=== PATIENT | male | born 1960 | race Hispanic/Latino ===

== ENCOUNTER 2020-04-18 06:28 | Inpatient (IN) | payer SELFPAY ==
[2020-04-18] VITALS (8 sets, daily range): BP systolic 109–148; BP diastolic 49–86
[~2020-04-18] VITALS: Ht 167.6 cm; Wt 69.7 kg
[2020-04-18] MEDS ORDERED: ASPIRIN 81 MG CHEW TAB PO ONE (07:00)
[2020-04-18 07:10] LABS: BASOPHILS % 0.3 % (0.0-1.0); LYMPHOCYTES % 13.4 % (18.0-39.1); MEAN CORPUSCULAR HGB CONC 33.6 g/dL (31-35); MEAN CORPUSCULAR VOLUME 83.5 fL (81-99); MONOCYTES % 6.8 % (4.4-11.3); NEUTROPHILS # (AUTO) 11.5 (2.1-6.9); NEUTROPHILS % 78.7 % (38.7-80.0); PLATELET COUNT 253 x10e3/uL (140-360); RED BLOOD COUNT 1.64 x10e6/uL (4.3-5.7); RED CELL DISTRIBUTION WIDTH 12.9 % (11.7-14.4)
[2020-04-18 07:15] LABS: HEMOGLOBIN 4.6 g/dL (14.0-18.0)
[2020-04-18 07:16] LABS: HEMATOCRIT 13.7 % (38.2-49.6)
[2020-04-18] MEDS ORDERED: SODIUM CHLORIDE 0.9% 250ML 250 ML IV ONE ×2 (07:30→11:45)
[2020-04-18 07:33] LABS: ALBUMIN 3.3 g/dL (3.5-5.0); ALBUMIN/GLOBULIN RATIO 1.2 (0.8-2.0); ANION GAP 12.6 mmol/L (8-16); CALCIUM 8.8 mg/dL (8.4-10.2); CREATININE, SERUM 1.31 mg/dL (0.72-1.25); POTASSIUM 4.6 mmol/L (3.5-5.1)
[2020-04-18 07:56] LABS: CREATINE KINASE MB 5.3 ng/mL (0-5.0)
--- NOTE | 2020-04-18 08:33 | Diagnostic Imaging Report ---
EXAMINATION: CHEST SINGLE (PORTABLE) INDICATION: Altered mental status COMPARISON: None FINDINGS: LINES/TUBES:None LUNGS:The lungs are moderately inflated. No focal consolidation or pulmonary edema. PLEURA:No pleural effusion or pneumothorax. MEDIASTINUM:The cardiomediastinal silhouette appears normal in size and shape. BONES/SOFT TISSUES:No acute osseous injury. ABDOMEN:No free air under the diaphragm. IMPRESSION: No focal pneumonia or pulmonary edema. Signed by: Claudio London MD on 04/18/2020 8:30 AM
--- NOTE | 2020-04-18 08:39 | Diagnostic Imaging Report ---
CT BRAIN WO HISTORY: Altered mental status COMPARISON: None. Technique: Noncontrast axial scans were obtained from skull base to the vertex. Coronal and sagittal reconstructions obtained from the axial data. One or more of the following dose reduction techniques were used: Automated exposure control, adjustment of the mA and/or kV according to patient size, and/or utilization of iterative reconstruction technique. DISCUSSION: Scalp/Skull: Unremarkable. Brain sulci: Mildly prominent. Ventricles: Mild compensatory dilatation. Approximately 5 mm nodular hyperdense lesion in the roof of the third ventricle is compatible with a colloid cyst. Extra-axial spaces: No masses or fluid collections. Carotid siphon calcifications are present. Parenchyma: Mild bilateral deep white matter hypodensity is likely chronic microvascular ischemic change. Otherwise, no masses, hemorrhage, or large vascular territory acute infarct. Dural sinuses: No abnormal densities. Sellar/Suprasellar region: Intact. Skull base: Intact. Incidental findings: None. IMPRESSION: 1. No acute intracranial abnormalities. 2. 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 3. Mild supratentorial chronic microvascular ischemic change. Mild generalized cerebral volume loss. Signed by: Dr. Melvin Garcia M.D. on 04/18/2020 8:35 AM
[2020-04-18] MEDS ORDERED: SODIUM CHLORIDE 0.9% 1000ML 1,000 ML IV STA (09:08)
[2020-04-18] MEDS ORDERED: PANTOPRAZOLE 40 MG 10ML VIAL IV STA (09:08)
[2020-04-18] MEDS ORDERED: OCTREOTIDE ACETATE 0.05 MG/ML AMP IV STA (09:12)
[2020-04-18 09:29] LABS: INR 1.05; PARTIAL THROMBOPLASTIN TIME 25.2 seconds (23.8-35.5); PROTHROMBIN TIME 14.4 seconds (11.9-14.5)
[2020-04-18] MEDS ORDERED: INSULIN REGULAR, HUMAN 100 UNIT/1 ML 3ML VIAL IV ONE (09:30)
--- NOTE | 2020-04-18 09:34 | Emergency Department Note ---
History of Present Illnes History of Present Illness Chief Complaint: General Medicine Complaints History of Present Illness This is a 59 year old male 59 Y/O MALE PT ALERT TO PERSON AND PLACE PRESENTS TO ED PALE IN COLOR WITH WEAKNESS SINCE YESTERDAY. 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 Any updates have been documented here. Past Medical History Recent Fever: No Clinical Suspicion of Infectio: Yes New/Unexplained Change in Ment: Yes Past Medical History: Diabetes Past Surgical History: None Social History Smoking Cessation: Never Smoker Counseling Performed: No Alcohol Use: Occasional Any Illegal Drug Use: No TB Exposure/Symptoms: No Physically hurt or threatened: No Family History Family history of heart diseas: No Other Last Tetanus: UNK Any Pre-Existing Lines (PICC,: No Is patient up to date on immun: Yes Last Flu: unknown Last Pneumovax: unknown Review of Systems Review of Systems Constitutional: Reports as per HPI, Reports weakness EENTM: Reports no symptoms Cardiovascular: Reports no symptoms Respiratory: Reports no symptoms Gastrointestinal: Reports other (BLACK STOOLS) Genitourinary: Reports no symptoms Musculoskeletal: Reports no symptoms Integumentary: Reports no symptoms Neurological: Reports weakness Psychological: Reports no symptoms Endocrine: Reports no symptoms Hematological/Lymphatic: Reports no symptoms Physical Exam Related Data Allergies: Coded Allergies: No Known Allergies (Unverified , 04/18/20) Triage Vital Signs Vital Signs Date Time Temp Pulse Resp B/P (MAP) Pulse Ox O2 Delivery O2 Flow Rate FiO2 04/18/20 07:06 99.8 102 14 151/64 100 Vital signs reviewed: Yes Physical Exam CONSTITUTIONAL Constitutional: Present well-developed, Present well-nourished HENT HENT: Present normocephalic, Present atraumatic, Present oropharynx clear/moist, Present nose normal HENT L/R: Present left ext ear normal, Present right ext ear normal EYES Eyes: Reports PERRL, Reports conjunctivae normal NECK Neck: Present ROM normal PULMONARY Pulmonary: Present effort normal, Present breath sounds normal CARDIOVASCULAR Cardiovascular: Present regular rhythm, Present heart sounds normal, Present capillary refill normal, Present normal rate GASTROINTESTINAL Abdominal: Present soft, Present nontender, Present bowel sounds normal; Absent tender GENITOURINARY Genitourinary: Present guaiac result (POSITIVE, MELENA) SKIN Skin: Present warm, Present dry, Present pale MUSCULOSKELETAL Musculoskeletal: Present ROM normal NEUROLOGICAL Neurological: Present alert, Present DTRs normal, Present no gross motor or sensory deficits, Present other (ORIENTED TO NAME/PLACE, NOT YEAR); Absent cranial nerve deficit, Absent sensory deficit, Absent weakness PSYCHOLOGICAL Psychological: Present mood/affect normal, Present judgement normal Results Laboratory Result Diagram: 04/18/2040 04/18/20 0640 Laboratory Laboratory Tests Test 04/18/20 07:25 04/18/20 06:40 Stool Occult Blood Positive (NEGATIVE) White Blood Count 14.61 x10e3/uL (4.8-10.8) Red Blood Count 1.64 x10e6/uL (4.3-5.7) Hemoglobin 4.6 g/dL (14.0-18.0) Hematocrit 13.7 % (38.2-49.6) Mean Corpuscular Volume 83.5 fL (81-99) Mean Corpuscular Hemoglobin 28.0 pg (28-32) Mean Corpuscular Hemoglobin Concent 33.6 g/dL (31-35) Red Cell Distribution Width 12.9 % (11.7-14.4) Platelet Count 253 x10e3/uL (140-360) Neutrophils (%) (Auto) 78.7 % (38.7-80.0) Lymphocytes (%) (Auto) 13.4 % (18.0-39.1) Monocytes (%) (Auto) 6.8 % (4.4-11.3) Eosinophils (%) (Auto) 0.0 % (0.0-6.0) Basophils (%) (Auto) 0.3 % (0.0-1.0) Neutrophils # (Auto) 11.5 (2.1-6.9) Lymphocytes # (Auto) 2.0 (1.0-3.2) Monocytes # (Auto) 1.0 (0.2-0.8) Eosinophils # (Auto) 0.0 (0.0-0.4) Basophils # (Auto) 0.0 (0.0-0.1) Absolute Immature Granulocyte (auto 0.11 x10e3/uL (0-0.1) Sodium Level 134 mmol/L (136-145) Potassium Level 4.6 mmol/L (3.5-5.1) Chloride Level 97 mmol/L (98-107) Carbon Dioxide Level 29 mmol/L (22-29) Anion Gap 12.6 mmol/L (8-16) Blood Urea Nitrogen 91 mg/dL (7-26) Creatinine 1.31 mg/dL (0.72-1.25) Estimat Glomerular Filtration Rate 56 ML/MIN (60-) BUN/Creatinine Ratio 69 (6-25) Glucose Level 320 mg/dL (74-118) Lactic Acid Level 1.3 mmol/L (0.5-2.0) Calcium Level 8.8 mg/dL (8.4-10.2) Total Bilirubin 0.2 mg/dL (0.2-1.2) Aspartate Amino Transf (AST/SGOT) 16 IU/L (5-34) Alanine Aminotransferase (ALT/SGPT) 17 IU/L (0-55) Alkaline Phosphatase 43 IU/L (40-150) Ammonia 33 UG/DL (31-123) Creatine Kinase 134 IU/L (30-200) Creatine Kinase MB 5.30 ng/mL (0-5.0) Troponin I 0.014 ng/mL (0-0.300) Total Protein 6.0 g/dL (6.5-8.1) Albumin 3.3 g/dL (3.5-5.0) Globulin 2.7 g/dL (2.3-3.5) Albumin/Globulin Ratio 1.2 (0.8-2.0) Lab results reviewed: Yes Imaging Imaging results reviewed: Yes Impressions Procedure: [id number] CT/CT BRAIN WO Exam Date: 04/18/20 Exam Time: 0758 REPORT STATUS: Signed CT BRAIN WO HISTORY: Altered mental status COMPARISON: None. Technique: Noncontrast axial scans were obtained from skull base to the vertex. Coronal and sagittal reconstructions obtained from the axial data. One or more of the following dose reduction techniques were used: Automated exposure control, adjustment of the mA and/or kV according to patient size, and/or utilization of iterative reconstruction technique. DISCUSSION: Scalp/Skull: Unremarkable. Brain sulci: Mildly prominent. Ventricles: Mild compensatory dilatation. Approximately 5 mm nodular hyperdense lesion in the roof of the third ventricle is compatible with a colloid cyst. Extra-axial spaces: No masses or fluid collections. Carotid siphon calcifications are present. Parenchyma: Mild bilateral deep white matter hypodensity is likely chronic microvascular ischemic change. Otherwise, no masses, hemorrhage, or large vascular territory acute infarct. Dural sinuses: No abnormal densities. Sellar/Suprasellar region: Intact. Skull base: Intact. Incidental findings: None. IMPRESSION: 1. No acute intracranial abnormalities. 2. 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 3. Mild supratentorial chronic microvascular ischemic change. Mild generalized cerebral volume loss. Signed by: Dr. Melvin Garcia M.D. on 04/18/2020 8:35 AM Procedure: [id number] DX/CHEST SINGLE (PORTABLE) Exam Date: 04/18/20 Exam Time: 0758 REPORT STATUS: Signed EXAMINATION: CHEST SINGLE (PORTABLE) INDICATION: Altered mental status COMPARISON: None FINDINGS: LINES/TUBES:None LUNGS:The lungs are moderately inflated. No focal consolidation or pulmonary edema. PLEURA:No pleural effusion or pneumothorax. MEDIASTINUM:The cardiomediastinal silhouette appears normal in size and shape. BONES/SOFT TISSUES:No acute osseous injury. ABDOMEN:No free air under the diaphragm. IMPRESSION: No focal pneumonia or pulmonary edema. Signed by: Claudio London MD on 04/18/2020 8:30 AM Critical Care Time Total Critical Care Time (min): 30 Critcal care necessary due to: circulatory failure Critcal care time spent by me: discussion w consultants, discussion w primary provider, evaluation patient response to tx, examination of patient, order/perform tx or interventions, order/review laboratory studies, re- evaluation of patient condition Assessment & Plan Medical Decision Making MDM AMS, WEAKNESS, APPEARS PALE - CHECK CBC, CHEM, ECG, CARDIACS, CXR, COVID SWAB, UA/CX, BLD CX'S, LACTIC, CT HEAD, STOOL GAUIAC - R/O ANEMIA, GI BLEED, STEMI/NSTEMI, PNEUMONIA, UTI, SEPSIS, CEREBRAL BLEED/CVA, COVID19 Reassessment Reassessment SEVERE ANEMIA/UPPER GI BLEED WITH NORMAL LFT'S - IVF'S, PROTONIX, OCTREOTIDE, TRANSFUSE, ADMIT - SPOKE WITH LEN KEEN Assessment & Plan Final Impression: (1) GI bleed (2) Altered mental status (3) Weakness generalized Depart Disposition: ADMITTED Last Vital Signs Date Time Temp Pulse Resp B/P (MAP) Pulse Ox O2 Delivery O2 Flow Rate FiO2 04/18/20 07:06 99.8 102 14 151/64 100 Medications in the ED Aspirin 81 mg PRN ONCE PO ; Start 04/18/20 at 07:00; Stop 04/18/20 at 08:56; Status DC Sodium Chloride 250 ml @ 0 mls/hr ONCE ONCE IV ; Start 04/18/20 at 07:30; Stop 04/18/20 at 08:56; Status DC Pantoprazole Sodium 80 mg NOW STAT IV ; Start 04/18/20 at 09:08; Stop 04/18/20 at 09:09; Status UNV Pantoprazole Sodium 40 mg BID IV ; Start 04/18/20 at 17:00; Stop 05/18/20 at 16:59; Status UNV Sodium Chloride 1,000 ml @ 0 mls/hr Q0M STAT IV ; Start 04/18/20 at 09:08; Stop 04/18/20 at 09:09; Status UNV FIONA WILKINS MD Apr 18, 2020 09:34
[2020-04-18] MEDS ORDERED: DEXTROSE 50% SYRINGE 50 ML IV PRN (09:45)
[2020-04-18] MEDS ORDERED: SODIUM CHLORIDE 0.9% 1000ML 1,000 ML IV SCH (09:45)
--- NOTE | 2020-04-18 10:40 | NUR ---
RECEIVED PATIENT FROM ER PATIENT ARRIVED IN STRETCHER CONFUSED ALERT TO SELF ONLY. HAS TWO IV TO BILATERAL RIGHT AND LEFT AC, PLACED ON IV FLUIDS. REQUIRED 3 PERSON ASSIST TO TRANSFER, HE APPEARED PALE, WAITING ON BLOOD. ORIENTED TO ROOM AND USE OF CALL LIGHT PATIENT CONFUSED UNABLE TO VERBALIZE UNDERSTANDING TO USE CALL LIGHT.
--- NOTE | 2020-04-18 11:30 | NUR ---
Patient pulled IV access got up the bed confused, notified Emiliano De Leon and obtained an order for restraints to bilateral wrist.
--- NOTE | 2020-04-18 11:40 | NUR ---
Patient placed on bilateral wrist restraints, and able to obtain IV access and restart IV fluids on patient.
[2020-04-18] MEDS ORDERED: ONDANSETRON HCL INJ 2MG/ML 2ML 2 MG/ML VIAL IV PRN (12:15)
[2020-04-18] MEDS ORDERED: ACETAMINOPHEN 650 MG SUPP PR PRN (12:15)
--- NOTE | 2020-04-18 12:30 | NUR ---
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
[2020-04-18 12:38] LABS: BASOPHILS % 0.3 % (0.0-1.0); LYMPHOCYTES % 12.9 % (18.0-39.1); MEAN CORPUSCULAR HEMOGLOBIN 28.1 pg (28-32); MEAN CORPUSCULAR HGB CONC 33.1 g/dL (31-35); MONOCYTES # (AUTO) 1.1 (0.2-0.8); NEUTROPHILS # (AUTO) 12.1 (2.1-6.9); NEUTROPHILS % 78.8 % (38.7-80.0); PLATELET COUNT 214 x10e3/uL (140-360); RED BLOOD COUNT 1.53 x10e6/uL (4.3-5.7); RED CELL DISTRIBUTION WIDTH 13.2 % (11.7-14.4)
[2020-04-18 12:58] LABS: CREATINE KINASE MB 5.5 ng/mL (0-5.0); HEMOGLOBIN 4.3 g/dL (14.0-18.0)
[2020-04-18] MEDS ORDERED: CEFEPIME 1GM/NS 0.9% 50 ML 50 ML IV SCH (13:15)
[2020-04-18] MEDS: INSULIN LISPRO 100 UNIT/1 ML 3ML VIAL SQ SCH ×3 (13:40→21:00)
--- NOTE | 2020-04-18 13:40 | NUR ---
Patient is awake and alert to self intermittent confusion, pulses present to bilateral wrist , he is NPO, blood infusing, agitated, skin to bilateral wrist intact. Restraints continue to be use for safety of patient, and line preservation.
--- NOTE | 2020-04-18 13:55 | NUR ---
Obtained another IV access to lateral right AC for antibiotic use and octreotide.
[2020-04-18] MEDS: CEFEPIME 1GM/NS 0.9% 50 ML 50 ML IV SCH (13:58)
[2020-04-18] MEDS: VANCOMYCIN 500MG/NS 0.9% 100ML 100 ML IV SCH (14:32)
--- NOTE | 2020-04-18 14:40 | NUR ---
Patient is awake and alert to self intermittent confusion, pulses present to bilateral wrist , he is NPO, blood infusing, agitated, skin to bilateral wrist intact. Restraints continue to be use for safety of patient, and line preservation. Cefepime antibiotic completed.
--- NOTE | 2020-04-18 15:15 | NUR ---
Patient is awake and alert to self intermittent confusion, pulses present to bilateral wrist , he is NPO, blood infusing, patient calm, skin to bilateral wrist intact. Restraints continue to be use for safety of patient, and line preservation. VANCOMYCIN 500 antibiotic infusing.
--- NOTE | 2020-04-18 15:55 | NUR ---
Patient is awake and alert and confused sanding at the side of the bed, removed both restraints, and pulled both IV access, blood almost completed, called for help, manger came in to assist and patient was assisted back to bed. Restraints were applied back. pulses present to bilateral wrist , he is NPO, blood infusing, patient calm, skin to bilateral wrist intact. Restraints continue to be use for safety of patient, and line preservation.
--- NOTE | 2020-04-18 16:00 | NUR ---
Obtained IV access # 20 gauge to right wrist and blood restarted.
[2020-04-18] MEDS: ZINC SULFATE 50 MG CAP PO SCH (17:00)
[2020-04-18] MEDS: ASCORBIC ACID 500 MG TAB PO SCH (17:00)
[2020-04-18] MEDS: OYST-CAL-D 500MG TABLET PO SCH (17:00)
--- NOTE | 2020-04-18 17:52 | NUR ---
LAB REPORTED THAT THE PATIENT HAS A NEGATIVE RESULT FOR SARS-COV-2 (COVID-19).
--- NOTE | 2020-04-18 18:01 | Diagnostic Imaging Report ---
EXAMINATION: CHEST SINGLE (PORTABLE) INDICATION: PICC line placement. COMPARISON: 04/18/20. FINDINGS: LINES/TUBES:Interval placement of a left upper extremity PICC with distal tip projecting on the cavoatrial junction, adequate position. LUNGS:The lungs are adequately inflated. No focal consolidation or pulmonary edema. PLEURA:No pleural effusion or pneumothorax. MEDIASTINUM:The cardiomediastinal silhouette appears normal in size and shape. Calcification of the aortic arch again observed. BONES/SOFT TISSUES:No acute osseous injury. ABDOMEN:No free air under the diaphragm. IMPRESSION: Left upper extremity PICC with distal tip projecting on the cavoatrial junction, adequate position. Signed by: Dr. Merna Carter M.D. on 04/18/2020 5:58 PM
[2020-04-18] MEDS ORDERED: OCUVITE TABLET1 EAC1 PO (18:24)
[2020-04-18] MEDS ORDERED: ACETAMINOPHEN500 MG PO (18:24)
--- NOTE | 2020-04-18 19:00 | NUR ---
Handoff report to oncoming nurse, patient in bed calm daughter at the bedside, restraints removed patient conversing appropriately. Second unit of PRBC's infusing, to right wrist, PICC line in place, chest x-ray taken, PICC ready to use, informed, nurse, Octreotide drip unable to start due to patient, continuance of pulling IV's access.
[2020-04-18 19:43] LABS: CREATINE KINASE MB 5.2 ng/mL (0-5.0)
--- NOTE | 2020-04-18 19:45 | NUR ---
PATIENT IN BED WITH DAUGHTER AT BEDSIDE WITH NO C/O PAIN OR DISCOMFORT AT THIS TIME. PATIENT HAS BLOOD INFUSING TO IV IN RIGHT ARM AND PICC LINE IN LEFT ARM SO STARTED THE SANDOSTATIN DRIP AND IV NS AT 100ML/HR. WILL CONT TO MONITOR.
[2020-04-18] MEDS ORDERED: [UNRECOGNIZED DRUG - OTHER] PO (19:50)
[2020-04-18] MEDS: PANTOPRAZOLE 40 MG 10ML VIAL IV SCH (19:54)
--- NOTE | 2020-04-18 20:00 | NUR ---
Called Dr. Leos, made aware Octreotide was started by night nurse due to patient's pulling IV access.
[2020-04-18] MEDS ORDERED: MORINGA PO (20:06)
[2020-04-18] MEDS ORDERED: LISINOPRIL10 MG PO (20:08)
[2020-04-18] MEDS ORDERED: LIPITOR20 MG PO (20:10)
[2020-04-18] MEDS ORDERED: PENTOXIFYLLINE400 MG PO (20:12)
--- NOTE | 2020-04-18 20:51 | NUR ---
NURSE ASSESSED PATIENT AND MADE SURE PATIENT WAS SECURE IN RESTRAINTS DAUGHTER STATED SHE WAS ABOUT TO GO TO THE FRONT AND LET HER SISTER COME IN AND REPLACE HER FOR THE NIGHT SITTER. PATIENT WAS STABLE AND STILL RECEIVING BLOOD THROUGH IV.
--- NOTE | 2020-04-18 21:06 | NUR ---
PATIENT'S DAUGHTER CAME TO NURSE STATION STATING SHE WAS LEAVING NOW AND GOING TO THE FRONT TO LET HER SISTER COME IN TO SIT WITH HIM OVERNIGHT. VERIFIED HER CONTACT INFORMATION THEN SHE LEFT. I THEN SAW PATIENT'S OTHER DAUGHTER SKY COME BY AND DIRECTED HER TO THE ROOM.
--- NOTE | 2020-04-18 21:08 | NUR ---
PATIENT'S DAUGHTER SKY CAME TO THE NURSE DESK STATING "HE PULLED OUT THE THING IN HIS ARM AND BLEEDING ALL OVER". NURSE ENTERED ROOM AND PATIENT WAS SITTING UP WITH BLOOD COMING DOWN THE ARM WHERE HE HAD PULLED OUT IV WITH BLOOD INFUSING AND HIS PICC LINE WITH SANDOSTATIN DRIP, REMOVED THE RESTRAINTS FROM HIS WRISTS, NASAL CANNULA AND WAS SAYING HE WANTS TO GO HOME. PATIENT WAS CLEANED UP AND NURSE WAS ABLE TO GET ONE IV GOING AGAIN FOR THE BLOOD TO CONTINUE AND A STAT ORDER WAS PLACED FOR ANOTHER PICC LINE TO BE PUT IN PATIENT AGAIN. PATIENT WAS RESTRAINED AGAIN AND NURSE NOTIFIED NAIF FRAGOSO NP FOR DR GUIDRY AND ORDER WAS PUT IN FOR IV ATIVAN DUE TO PATIENT'S AGITATION. DAUGHTER EDUCATED THAT NO ONE BUT STAFF CAN REMOVE THE RESTRAINTS AND TO LET HER SISTER KNOW NOT TO REMOVE PATIENT RESTRAINTS AGAIN AND THAT IF THEY WERE GOING TO STAY SITTERS THEY CANNOT LEAVE THE ROOM WITHOUT NOTIFYING NURSING STAFF TO KEEP THEIR DAD SAFE. AFTER ADMINISTERING IV ATIVAN PATIENT WAS CALM AND WENT TO SLEEP WITH SNORING. WILL CONT TO MONITOR.
--- NOTE | 2020-04-18 21:35 | Consultation ---
DATE OF CONSULTATION: HISTORY OF PRESENT ILLNESS: This is a 59-year-old male. Apparently, he was doing well yesterday, came back from work. He is confused. There was no fever and no chills. He came to the emergency room, where he is being admitted. The patient does not provide any further information, but he was found to be extremely anemic with hemoglobin of 4.3, is getting blood. The lactic acid was done and shows that it elevated, so Infectious Disease was asked to see the patient. His COVID-19 is negative. His occult blood was positive. Sodium 134, potassium 4.6, and creatinine 1.31. His liver enzyme within normal limit. His white count was 14.6, hemoglobin of 4.6, and platelet count of 53. MEDICATIONS: He is on vancomycin and cefepime he is receiving blood at the present time. LABORATORY AND DIAGNOSTIC DATA: He had a chest x-ray, which shows no focal pneumonia and CT of the brain, which shows no acute finding. REVIEW OF SYSTEMS: CONSTITUTIONAL: He is a little bit confused, but seems to be comfortable. PHYSICAL EXAMINATION: GENERAL: He is currently alert. VITAL SIGNS: Stable, afebrile. HEENT: He is not icteric. NECK: Supple. CHEST: Clear. HEART: S1, S2, no murmurs. ABDOMEN: Soft. Bowel sounds was present. EXTREMITIES: No edema. SKIN: No rash. IMPRESSION: Altered mental status and severe anemia, admission concerned about GI loss. RECOMMEND: GI evaluation. Blood transfusion is ordered. There is no fever at present time. Lactic acid and leukocytosis could be reactive with acute loss. Recommend to put him on Rocephin 1 g daily, to await the blood cultures. We will also obtain CT of the abdomen and pelvis to assess the liver status. We will follow with you clinically. MD ORTIZ Iverson/SKY /[id number]
[2020-04-18] MEDS: OCTREOTIDE ACETATE 500 MCG in SODIUM CHLORIDE 0.9% 250ML 249 ML IV SCH ×2 (22:12→22:17)
[2020-04-18] MEDS ORDERED: QUETIAPINE FUMARATE 25 MG TAB PO SCH (22:15)
[2020-04-18] MEDS ORDERED: LORAZEPAM INJ 2 MG/ML VIAL IV ONE (22:15)
--- NOTE | 2020-04-18 22:17 | NUR ---
PATIENT TELE ALARM GOING OFF NURSE WENT TO ROOM TO ASSESS PATIENT AND PATIENT NOTED TO BE HAVING EXTREME SLEEP APNEA PERIODS WITH DESATING INTO THE 70S DESPITE 4L/NC O2 AND PATIENT HAS LONG PERIODS OF APNEA WELL CHOKING EPISODES. DAUGHTER SKY STILL AT BEDSIDE TO WITNESS PATIENT'S APNEA EPISODES. NURSE ED DAUGHTER THAT ONCE OUT OF THE HOSPITAL HE WILL NEED SLEEP STUDY AND POSSIBLE HOME BIPAP USE. CALLED NAIF FRAGOSO NP FOR DR GUIDRY AND NOTIFIED OF PATIENT'S EXTREME APNEA EPISODES. HE STATES HE WILL COME SEE THE PATIENT.
--- NOTE | 2020-04-18 22:41 | Consultation ---
DATE OF CONSULTATION: 04/18/2020 REASON FOR CONSULTATION: To see if the patient has loss of blood since he has a hemoglobin of 4.3, it is coming from his foot. History could not be taken due to the fact that the patient is not responsive to verbal stimuli. PHYSICAL EXAMINATION: His foot was inspected. He has a grade 1/2 ulceration plantar aspect right foot with no active bleeding. There is some mild periwound cellulitis present with pedal pulses diminished. ASSESSMENT: Grade 2 ulceration with cellulitis. PLAN: We will start Bactroban ointment b.i.d., offloading. Upon discharge, the patient is to follow up in the office. The bleeding, loss of blood is not coming from his foot. TAVARES Hillman/SKY /[id number]
--- NOTE | 2020-04-18 23:27 | NUR ---
NURSE AND SUPERVISOR BILLPOSTING NAIF FRAGOSO IN PATIENT'S ROOM OBSERVING HIS APNEA EPISODES, DAUGHTER AT BEDSIDE STATING SHE HEARS HIM AT HOME FOR YEARS SNORING AND SLEEPING LIKE THIS BUT SHE'S NEVER SEEN HIM IN PERSON DO THIS SINCE HE MOVED TO HER OTHER SISTER'S HOUSE. BIPAP ORDERED FOR PATIENT. NAIF FRAGOSO, SUPERVISOR BILLPOSTING, DR KEEN AND NURSE DISCUSSED PT CARE AT DESK AND CONCLUDED THAT PT NEEDS PULMONARY CONSULT DUE TO THE SEVERE APNEA SINCE DR KEEN NEEDS TO DO EGD/COLONOSCOPY BUT IS CONCERNED ABOUT ANESTHESIA WITH APNEA THIS SEVERE. CONSULT PLACED FOR DR MEDELLIN TO ASSESS PATIENT AND CLEAR PATIENT FOR PROCEDURE. PATIENT NOW ON BIPAP / 16R 30% O2 AND RESTING COMFORTABLY WITH O2 SAT 100%, DAUGHTER STILL AT BEDSIDE SITTER AND PT STILL RESTRAINED AT THIS TIME. WILL CONT TO MONITOR.
[2020-04-19] VITALS (11 sets, daily range): BP systolic 118–189; BP diastolic 54–82
--- NOTE | 2020-04-19 | NUR ---
PER DR KEEN RECHECK CBC AT 0100 AND IF PT HGB IS 7 OR BELOW THEN TRANSFUSE ONE UNIT PRBC. WILL RECHECK AND MONITOR.
--- NOTE | 2020-04-19 00:07 | NUR ---
CALLED [facility] TO CHECK ON ETA FOR PT STAT PICC TO BE INSERTED AND WAS TOLD THERE WAS ONE STOP BEFORE MR ROSS AND THEN THEY WOULD BE COMING. AT THIS TIME PT HAS ONE IV STILL ALLOWING NS FLUIDS AND SANDOSTATIN DRIP BUT WILL NEED ANOTHER ACCESS FOR PROBABLE NEXT UNITS OF BLOOD AND NO OTHER HOSPITAL STAFF HAVE BEEN ABLE TO GAIN ANOTHER ACCESS AT THIS TIME. PT STABLE AND RESTING PEACEFULLY WITH V/S IN NORMAL RANGE. WILL CONT TO MONITOR.
--- NOTE | 2020-04-19 02:20 | NUR ---
NURSING STAFF STILL UNABLE TO OBTAIN BLOOD SAMPLE FROM PATIENT TO RECHECK H&H, MULTIPLE ATTEMPTS BY DIFFERENT NURSES UNSUCCESSFUL AND ER STAFF TOO BUSY TO HELP, CALLED [facility] FOR PICC LINE BACK TO GET ETA FOR PICC INSTALL AND AWAITING CALL BACK.
[2020-04-19] MEDS: LORAZEPAM INJ 2 MG/ML VIAL IV PRN ×2 (02:32→12:57)
[2020-04-19 02:57] LABS: BASOPHILS # (AUTO) 0.1 (0.0-0.1); BASOPHILS % 0.6 % (0.0-1.0); EOSINOPHILS % 0.1 % (0.0-6.0); HEMATOCRIT 22.3 % (38.2-49.6); HEMOGLOBIN 7.5 g/dL (14.0-18.0); LYMPHOCYTES % 28.3 % (18.0-39.1); MEAN CORPUSCULAR HEMOGLOBIN 28.5 pg (28-32); MEAN CORPUSCULAR HGB CONC 33.6 g/dL (31-35); MEAN CORPUSCULAR VOLUME 84.8 fL (81-99); MONOCYTES # (AUTO) 1.4 (0.2-0.8); MONOCYTES % 9.7 % (4.4-11.3); NEUTROPHILS # (AUTO) 8.5 (2.1-6.9); PLATELET COUNT 228 x10e3/uL (140-360); RED BLOOD COUNT 2.63 x10e6/uL (4.3-5.7); RED CELL DISTRIBUTION WIDTH 14.9 % (11.7-14.4)
--- NOTE | 2020-04-19 03:02 | NUR ---
NURSE STAFF STILL ATTEMPTING TO GET LABS FOR PT TO RECHECK H&H AMONG OTHERS AND PATIENT IS RESISTING AND PULLING WELL THRASHING AROUND IN BED WITH FEET. NURSE ADMINISTERED DOSE OF ORDERED ATIVAN IV AND PATIENT STILL RESISTING EVEN WITH 3 NURSES AND DAUGHTER HOLDING PATIENT. PICC LINE NURSE ON THE WAY PER [facility] SO CALLED TO NOTIFY CHIEF OF ANESTHESIOLOGY NAIF FRAGOSO AND ORDERED TO GIVE ONE TIME DOSE OF ATIVAN FOR SEDATION SINCE PT ON BIPAP IN ORDER TO GET PICC LINE INSTALLED WITHOUT PT BREAKING STERILE PROCEDURE WHILE IT'S PLACED.
[2020-04-19] MEDS ORDERED: LORAZEPAM INJ 2 MG/ML VIAL IV ONE (03:15)
[2020-04-19 03:17] LABS: ALANINE AMINOTRANSFERASE 18 IU/L (0-55); ALBUMIN 3.3 g/dL (3.5-5.0); ALBUMIN/GLOBULIN RATIO 1.1 (0.8-2.0); ALKALINE PHOSPHATASE 46 IU/L (40-150); ANION GAP 11.5 mmol/L (8-16); BUN/CREATININE RATIO 46 (6-25); CALCIUM 8.6 mg/dL (8.4-10.2); CARBON DIOXIDE 29 mmol/L (22-29); CHLORIDE 108 mmol/L (98-107); CREATININE, SERUM 0.97 mg/dL (0.72-1.25); EST GLOMERULAR FILTRATION RATE > 60 ML/MIN (60-); GLUCOSE 119 mg/dL (74-118); POTASSIUM 4.5 mmol/L (3.5-5.1)
[2020-04-19 03:25] LABS: BLOOD UREA NITROGEN 45 mg/dL (7-26); SODIUM 144 mmol/L (136-145)
[2020-04-19 03:46] LABS: CHOL/HDL RATIO 4.2 (3.9-4.7); MAGNESIUM 2.1 MG/DL (1.3-2.1)
[2020-04-19 04:06] LABS: THYROID STIMULATING HORMONE 0.219 uIU/mL (0.350-4.940)
[2020-04-19 04:08] LABS: FERRITIN 88.71 ng/mL (21.81-274.66)
--- NOTE | 2020-04-19 04:17 | Diagnostic Imaging Report ---
EXAMINATION: CHEST XRAY LINE PLACEMENT INDICATION: ^PICC LINE PLACEMENT COMPARISON: None FINDINGS: AP view TUBES and LINES: A left upper extremity PICC terminates in the lower SVC. LUNGS: Lungs are well inflated. Lungs are clear. There is no evidence of pneumonia or pulmonary edema. PLEURA: No pleural effusion or pneumothorax. HEART AND MEDIASTINUM: The cardiomediastinal silhouette is unremarkable. BONES AND SOFT TISSUES: No acute osseous lesion. Soft tissues are unremarkable. UPPER ABDOMEN: No free air under the diaphragm. IMPRESSION: The left upper extremity PICC terminates in the lower superior vena cava. Signed by: Dragan Marr MD on 04/19/2020 4:14 AM
[2020-04-19] MEDS: VANCOMYCIN 500MG/NS 0.9% 100ML 100 ML IV SCH ×2 (04:27→15:59)
[2020-04-19] MEDS ORDERED: SODIUM CHLORIDE 0.9% 1000ML 1,000 ML ONE (04:46)
[2020-04-19] MEDS: SODIUM CHLORIDE 0.9% 1000ML 1,000 ML IV SCH ×2 (05:33→15:59)
[2020-04-19] MEDS: OCTREOTIDE ACETATE 500 MCG in SODIUM CHLORIDE 0.9% 250ML 249 ML IV SCH ×3 (06:07→19:56)
--- NOTE | 2020-04-19 06:13 | NUR ---
CALLED AND NOTIFIED DR MEDELLIN OF CONSULT TO CLEAR PT FOR EGD/COLONOSCOPY PROCEDURES DUE TO EXTREME SLEEP APNEA EPISODES WITNESSED BY NURSES, AGENT TICKETING GATE FOR DR GUIDRY AND PT DAUGHTER SKY. DR MEDELLIN STATES HE WILL COME SEE PT TODAY.
[2020-04-19 06:26] LABS: CREATINE KINASE MB 5.2 ng/mL (0-5.0)
[2020-04-19] MEDS: INSULIN LISPRO 100 UNIT/1 ML 3ML VIAL SQ SCH ×4 (07:30→21:00)
[2020-04-19] MEDS: ZINC SULFATE 50 MG CAP PO SCH ×2 (07:43→15:59)
[2020-04-19] MEDS: MULTIVITAMINS/MINERALS TAB PO SCH (07:43)
[2020-04-19] MEDS: MAGNESIUM OXIDE 400 MG TAB PO SCH (07:43)
[2020-04-19] MEDS: ASCORBIC ACID 500 MG TAB PO SCH ×2 (07:43→15:59)
[2020-04-19] MEDS: OYST-CAL-D 500MG TABLET PO SCH ×2 (07:43→15:59)
--- NOTE | 2020-04-19 08:08 | NUR ---
PT GIVEN SELF PAY PACKET, IF APPROVED FOR HOSPITAL MEDICAID IT WILL ONLY PAY FOR STAY INHOUSE, IF PROCESSED THEN WILL BE IN BAR NOTES OR JULIANO APPLICATION GIVEN BY [facility]. PT WILL HAVE TO PAY OUT OF POCKET FOR O2 HART ANTOINE.
[2020-04-19] MEDS: PANTOPRAZOLE 40 MG 10ML VIAL IV SCH ×2 (08:46→17:15)
[2020-04-19] MEDS: BACITRACIN ZINC 15 GM OINT TOP SCH (08:46)
[2020-04-19] MEDS ORDERED: QUETIAPINE FUMARATE 25 MG TAB PO SCH (09:00)
--- NOTE | 2020-04-19 12:24 | Progress Note ---
DATE: SUBJECTIVE: The patient is seen and evaluated. Discussed with the daughter in details. Available labs and notes reviewed. Discussed with the nurse. REVIEW OF SYSTEMS: Unable to obtain review of systems from patient secondary to his medical condition. MEDICATIONS: Medication list is reviewed. From ID point of view, the patient is on vancomycin IV and cefepime. LABORATORY STUDIES: White count of 14.18, hemoglobin 7.5, and platelet 228. Serology: Coronavirus PCR 19 not detected on 04/18/2020. Fecal occult blood is positive. MICROBIOLOGY: Blood culture negative 24 hours. RADIOLOGY STUDIES: Status post PICC line placement. CT of the head showed no acute intracranial abnormalities on 04/18. Chest x-ray showed no focal pneumonia or pulmonary edema. PHYSICAL EXAMINATION: VITAL SIGNS: Temperature 98.8, pulse 71, respirations 10, blood pressure 140/56, and maximum temperature on this admission is 99.8. GENERAL: Comfortable in bed, opens eyes, seems lethargic. No obvious acute distress. Daughter is in the room. She states that patient is overall much better. CV: S1-S2. CHEST: Equal expansion. Clear to auscultation. No acute distress. ABDOMEN: Soft. No distention. No tenderness. HEENT: Moist. No pallor. No JVD. EXTREMITIES: No edema of extremities, moves all. ASSESSMENT AND PLAN: 1. Altered mental status. 2. Severe debility. 3. Severe anemia. Continue with antibiotics. Monitor the patient clinically, follow with the labs. GI on the case. GI scope is planned when patient is medically more stable. Please refer to chart for more information. Follow up with vancomycin trough. Dictated by Kurt Nogueira PA-C (Al) Marylou Flores MD /MODL /[id number]
[2020-04-19] MEDS: CEFEPIME 1GM/NS 0.9% 50 ML 50 ML IV SCH (12:57)
[2020-04-19 14:41] LABS: BASOPHILS # (AUTO) 0.1 (0.0-0.1); BASOPHILS % 0.5 % (0.0-1.0); EOSINOPHILS # (AUTO) 0.1 (0.0-0.4); EOSINOPHILS % 0.6 % (0.0-6.0); HEMATOCRIT 21.3 % (38.2-49.6); LYMPHOCYTES # (AUTO) 2.1 (1.0-3.2); LYMPHOCYTES % 20.4 % (18.0-39.1); MEAN CORPUSCULAR HEMOGLOBIN 28.3 pg (28-32); MEAN CORPUSCULAR HGB CONC 32.9 g/dL (31-35); MEAN CORPUSCULAR VOLUME 86.2 fL (81-99); MONOCYTES # (AUTO) 0.9 (0.2-0.8); MONOCYTES % 8.8 % (4.4-11.3); NEUTROPHILS # (AUTO) 7.1 (2.1-6.9); NEUTROPHILS % 68.3 % (38.7-80.0); PLATELET COUNT 213 x10e3/uL (140-360); RED BLOOD COUNT 2.47 x10e6/uL (4.3-5.7); RED CELL DISTRIBUTION WIDTH 15.1 % (11.7-14.4)
--- NOTE | 2020-04-19 19:20 | Consultation ---
DATE OF CONSULTATION: Pulmonary Critical Care Consultation CHIEF COMPLAINT: Desaturations at night and confusion. HISTORY OF PRESENT ILLNESS: The patient is a 59-year-old man with minimal past medical history. He has some type of diabetes, but does not use inhalers at home. He is not on oxygen at home. He came to the hospital two days ago with increased confusion. He had some vomiting and some black stools. He was admitted to the hospital with a hemoglobin of 4.6. He required packed red blood cells. He is potentially going for an EGD tomorrow. PAST SURGICAL HISTORY: None. PAST MEDICAL HISTORY: 1. Diabetes. 2. The patient denies any prior asthma or respiratory problems. 3. The patient denies any cardiac problems. SOCIAL HISTORY: The patient was a former smoker. He was a former drinker. He works at [employer]. He is here with his family. FAMILY HISTORY: Unknown. ALLERGIES: NO DRUG ALLERGIES. REVIEW OF SYSTEMS: There is no history of fevers. He is having some confusion. There is no headache. He has some snoring. There is no chest pain. He has no dyspnea on exertion. He does not have cough. There is no abdominal pain. He did have some vomiting. He has some black stools. He is not having any leg edema. PHYSICAL EXAMINATION: VITAL SIGNS: The blood pressure is 140/56 and saturation is now 100% on a nasal cannula 4 L. His pulse is 76. His respiratory rate is normal. HEENT: Shows no facial swelling or erythema. CARDIAC: Reveals regular rate and rhythm with normal S1 and S2. LUNGS: Auscultation of lungs reveals a prolonged expiratory phase. There is no wheezing. ABDOMEN: Soft and nontender. There is no rebound or guarding. EXTREMITIES: Shows no leg edema or calf tenderness. There is no cyanosis or clubbing. SKIN: Shows no rashes. NEUROLOGICAL: Shows no focal abnormalities. The patient does have some confusion, but it seems to be improving. LABORATORY DATA: Hemoglobin is now 7.5. White blood cell count is 14.1 and the platelet count is 228. The BUN to creatinine ratio is 45 to 0.97. The albumin is 3.3. The other electrolytes are within normal limits. RADIOGRAPHIC DATA: Chest x-ray shows no acute abnormalities. The lungs are hyperinflated. IMPRESSION: 1. Anemia secondary to acute blood loss. 2. Upper gastrointestinal bleed. 3. Metabolic encephalopathy. 4. Acute kidney injury. 5. Diabetes. 6. Chronic obstructive pulmonary disease. PLAN: 1. Continue to monitor hemoglobin. Give packed red cells as needed. 2. Continue current antibiotics. 3. Oxygen as needed. 4. Bronchodilators as needed. MD LM Parkinson/MODL /[id number]
[2020-04-19] MEDS: HYDRALAZINE HCL 20 MG/ML VIAL IV PRN (20:35)
[2020-04-20] VITALS (9 sets, daily range): BP systolic 124–168; BP diastolic 58–121
[2020-04-20] MEDS: LORAZEPAM INJ 2 MG/ML VIAL IV PRN ×2 (00:15→19:20)
--- NOTE | 2020-04-20 00:30 | NUR ---
0010 Daughter called from room. Noted patient agitated and attempting to remove gown, tele, pulse ox and pulling against restraints. 0015 Medicated PRN, patient continue to be agitated, attempting to kick and removing top linen and gown. Daughter stating patient stating he want to leave. Reoriented patient to place and time. Patient remains agitated. Continue to redirect and distract with daughter at bedside. Will continue to monitor.
[2020-04-20] MEDS: SODIUM CHLORIDE 0.9% 1000ML 1,000 ML IV SCH ×2 (00:42→14:26)
[2020-04-20 00:51] LABS: BASOPHILS # (AUTO) 0.1 (0.0-0.1); BASOPHILS % 0.4 % (0.0-1.0); EOSINOPHILS # (AUTO) 0.1 (0.0-0.4); EOSINOPHILS % 0.4 % (0.0-6.0); HEMOGLOBIN 7.6 g/dL (14.0-18.0); LYMPHOCYTES # (AUTO) 3.7 (1.0-3.2); LYMPHOCYTES % 25.9 % (18.0-39.1); MEAN CORPUSCULAR HEMOGLOBIN 28.6 pg (28-32); MEAN CORPUSCULAR VOLUME 86.5 fL (81-99); MONOCYTES # (AUTO) 1.2 (0.2-0.8); MONOCYTES % 8.4 % (4.4-11.3); NEUTROPHILS % 63.7 % (38.7-80.0); PLATELET COUNT 247 x10e3/uL (140-360); RED BLOOD COUNT 2.66 x10e6/uL (4.3-5.7); RED CELL DISTRIBUTION WIDTH 15.2 % (11.7-14.4)
[2020-04-20 01:09] LABS: ALANINE AMINOTRANSFERASE 21 IU/L (0-55); ALBUMIN 3.2 g/dL (3.5-5.0); ALBUMIN/GLOBULIN RATIO 1.1 (0.8-2.0); ALKALINE PHOSPHATASE 55 IU/L (40-150); ANION GAP 9.8 mmol/L (8-16); BUN/CREATININE RATIO 25 (6-25); CALCIUM 8.5 mg/dL (8.4-10.2); CARBON DIOXIDE 25 mmol/L (22-29); CHLORIDE 113 mmol/L (98-107); CREATININE, SERUM 0.81 mg/dL (0.72-1.25); EST GLOMERULAR FILTRATION RATE > 60 ML/MIN (60-); GLUCOSE 174 mg/dL (74-118); POTASSIUM 3.8 mmol/L (3.5-5.1); SODIUM 144 mmol/L (136-145)
[2020-04-20 01:11] LABS: BLOOD UREA NITROGEN 20 mg/dL (7-26)
[2020-04-20 01:23] LABS: FERRITIN 87.39 ng/mL (21.81-274.66)
--- NOTE | 2020-04-20 02:15 | NUR ---
Care transferred. Daughter at bedside. Patient alert and confused, restraints in place.
[2020-04-20] MEDS: VANCOMYCIN 500MG/NS 0.9% 100ML 100 ML IV SCH ×2 (03:02→15:00)
[2020-04-20 05:40] LABS: BASOPHILS # (AUTO) 0.1 (0.0-0.1); BASOPHILS % 0.6 % (0.0-1.0); EOSINOPHILS # (AUTO) 0.1 (0.0-0.4); EOSINOPHILS % 0.5 % (0.0-6.0); HEMATOCRIT 22.6 % (38.2-49.6); HEMOGLOBIN 7.3 g/dL (14.0-18.0); LYMPHOCYTES # (AUTO) 2.1 (1.0-3.2); LYMPHOCYTES % 16.9 % (18.0-39.1); MEAN CORPUSCULAR HEMOGLOBIN 28.3 pg (28-32); MEAN CORPUSCULAR HGB CONC 32.3 g/dL (31-35); MEAN CORPUSCULAR VOLUME 87.6 fL (81-99); MONOCYTES # (AUTO) 1.1 (0.2-0.8); MONOCYTES % 8.8 % (4.4-11.3); NEUTROPHILS # (AUTO) 9.1 (2.1-6.9); NEUTROPHILS % 72.1 % (38.7-80.0); PLATELET COUNT 252 x10e3/uL (140-360); RED BLOOD COUNT 2.58 x10e6/uL (4.3-5.7); RED CELL DISTRIBUTION WIDTH 15.1 % (11.7-14.4)
[2020-04-20] MEDS: OCTREOTIDE ACETATE 500 MCG in SODIUM CHLORIDE 0.9% 250ML 249 ML IV SCH (06:41)
--- NOTE | 2020-04-20 07:00 | NUR ---
BEDSIDE REPORT FROM LIQUID FERTILIZER SERVICER RN. PT DENIES NEEDS AT THIS TIME.
[2020-04-20 07:13] LABS: BILIRUBIN,URINE NEGATIVE (NEGATIVE); CLARITY,URINE CLEAR (CLEAR); COLOR,URINE YELLOW (YELLOW); KETONES,URINE 1+ (NEGATIVE); LEUKOCYTE ESTERASE ,URINE NEGATIVE (NEGATIVE); NITRITE,URINE NEGATIVE (NEGATIVE); PROTEIN,URINE DIPSTICK NEGATIVE (NEGATIVE); URINE UROBILINOGEN 0.2 mg/dL (0.2 - 1)
[2020-04-20 07:26] LABS: BACTERIA,URINE RARE /HPF; EPITHELIAL CELLS,URINE RARE /LPF; RBC,URINE 0-5 /HPF (0-5); WBC,URINE (MAN) 0-5 /HPF (0-5)
[2020-04-20] MEDS: INSULIN LISPRO 100 UNIT/1 ML 3ML VIAL SQ SCH ×4 (07:30→20:46)
[2020-04-20] MEDS: MULTIVITAMINS/MINERALS TAB PO SCH (08:40)
[2020-04-20] MEDS: BACITRACIN ZINC 15 GM OINT TOP SCH (08:40)
[2020-04-20] MEDS: PANTOPRAZOLE 40 MG 10ML VIAL IV SCH ×2 (08:40→17:22)
[2020-04-20] MEDS: ASCORBIC ACID 500 MG TAB PO SCH ×2 (08:40→17:00)
[2020-04-20] MEDS: MAGNESIUM OXIDE 400 MG TAB PO SCH (08:40)
[2020-04-20] MEDS: OYST-CAL-D 500MG TABLET PO SCH ×2 (08:40→17:00)
[2020-04-20] MEDS: ZINC SULFATE 50 MG CAP PO SCH ×2 (08:40→17:00)
--- NOTE | 2020-04-20 10:17 | NUR ---
PT OFF THE UNIT TO ENDO.
[2020-04-20 12:12] LABS: BASOPHILS # (AUTO) 0.1 (0.0-0.1); BASOPHILS % 0.5 % (0.0-1.0); EOSINOPHILS % 0.3 % (0.0-6.0); HEMOGLOBIN 7.1 g/dL (14.0-18.0); LYMPHOCYTES # (AUTO) 1.7 (1.0-3.2); LYMPHOCYTES % 13.3 % (18.0-39.1); MEAN CORPUSCULAR HEMOGLOBIN 28.1 pg (28-32); MEAN CORPUSCULAR HGB CONC 32.3 g/dL (31-35); MONOCYTES % 7.9 % (4.4-11.3); NEUTROPHILS # (AUTO) 9.7 (2.1-6.9); PLATELET COUNT 261 x10e3/uL (140-360); RED BLOOD COUNT 2.53 x10e6/uL (4.3-5.7); RED CELL DISTRIBUTION WIDTH 14.9 % (11.7-14.4)
[2020-04-20] MEDS ORDERED: ZINC OXIDE 30 GM TUBE TOP PRN (12:45)
[2020-04-20] MEDS: IRON SUCROSE 100 MG in SODIUM CHLORIDE 0.9% 100 ML 100 ML IV SCH (12:46)
--- NOTE | 2020-04-20 12:53 | Operative Report ---
DATE OF PROCEDURE: 04/20/2020 SURGEON: Elias Leos MD PROCEDURE: EGD with biopsies. INDICATIONS FOR EGD: Anemia, history of melena. MEDICATIONS: The patient was done under MAC, please see anesthesiologist's note. PROCEDURE IN DETAIL: With the patient in left lateral decubitus position, a flexible fiberoptic Olympus gastroscope was introduced into the esophagus under direct visualization without any difficulty. There was some patchy erythema noted in distal esophagus. There was some patchy erythema noted in the distal esophagus. The scope was then advanced with ease into the stomach and approximately three ulcers were noted in the antrum; some with heaped up margins without active bleeding, one ulcer was biopsied. The mucosa revealed some patchy erythema and [id number] edema, and biopsies were obtained and sent to stain for H. pylori. Pylorus was of normal contour and shape, it was intubated with ease and the scope was advanced all the way to the second portion of the duodenum. Mucosa overlying the proximal second portion appeared to be within normal limits. Mucosa overlying the duodenal bulb revealed some diffuse some patchy intense erythema. The scope was then withdrawn back into the stomach and retroflexed, mucosa overlying the fundus and cardia appeared to be within normal limits. The scope was then straightened out, it was subsequently withdrawn. The patient tolerated the procedure well. IMPRESSION: 1. Distal esophagitis, mild. 2. Gastritis, biopsied. Biopsies sent to stain for H. pylori. 3. Gastric ulcers, antrum, largest up to 6 mm in size, some with heaped up margins without active bleeding, biopsied. 4. Bulbar duodenitis. PLAN: 1. Follow up histology. 2. Continue PPI therapy. 3. The patient will need to have a repeat EGD in 2 months to re-evaluate the ulcers and document healing. 4. Also, the patient will also need a colonoscopy, which can be done on an outpatient basis. Elias Leos MD [facility]/MODL /[id number] cc: MD Chema Iverson MD Louis M Hamer, MD
[2020-04-20] MEDS: CEFEPIME 1GM/NS 0.9% 50 ML 50 ML IV SCH (14:01)
[2020-04-20] MEDS ORDERED: SODIUM CHLORIDE 0.9% 1000ML 1,000 ML ONE (14:23)
[2020-04-20] MEDS ORDERED: OCTREOTIDE ACETATE 500 MCG in SODIUM CHLORIDE 0.9% 250ML 249 ML IV SCH (16:30)
--- NOTE | 2020-04-20 16:45 | NUR ---
PT OFF THE FLOOR FOR CT
[2020-04-20] MEDS: HYDRALAZINE HCL 20 MG/ML VIAL IV PRN (17:57)
[2020-04-20] MEDS ORDERED: DEXTROSE 5%/0.9% SOD CHL 1,000 ML IV SCH (18:00)
[2020-04-20 18:19] LABS: BASOPHILS % 0.3 % (0.0-1.0); EOSINOPHILS % 0.2 % (0.0-6.0); HEMATOCRIT 21.6 % (38.2-49.6); HEMOGLOBIN 7.1 g/dL (14.0-18.0); LYMPHOCYTES # (AUTO) 1.3 (1.0-3.2); MEAN CORPUSCULAR HEMOGLOBIN 28.6 pg (28-32); MEAN CORPUSCULAR HGB CONC 32.9 g/dL (31-35); MEAN CORPUSCULAR VOLUME 87.1 fL (81-99); MONOCYTES # (AUTO) 0.9 (0.2-0.8); MONOCYTES % 7.7 % (4.4-11.3); NEUTROPHILS # (AUTO) 9.6 (2.1-6.9); NEUTROPHILS % 80.2 % (38.7-80.0); PLATELET COUNT 251 x10e3/uL (140-360); RED BLOOD COUNT 2.48 x10e6/uL (4.3-5.7)
--- NOTE | 2020-04-20 18:43 | Diagnostic Imaging Report ---
EXAM: CT Chest WITHOUT contrast 04/20/2020 4:50 PM INDICATION: Pneumonia. COMPARISON: None TECHNIQUE: Chest was scanned utilizing a multidetector helical scanner from the lung apex through the level of the adrenal glands without administration of IV contrast. Absence of intravenous contrast decreases sensitivity for detection of lymphadenopathy and vascular pathology. Coronal and sagittal reformations were obtained. Routine protocol was performed. IV CONTRAST: None RADIATION DOSE: Total DLP: 480.29 mGy*cm Estimated effective dose: (DLP x 0.014 x size factor) mSv COMPLICATIONS: None FINDINGS: LINES/ TUBES: Left upper extremity PICC with distal tip within the cavoatrial junction. LUNGS AND AIRWAYS: Bilateral multi focal patchy groundglass densities and nodular consolidation scattered throughout predominantly the dependent portions of the lower lobes and superior segment of the upper lobes. Airways are normal. PLEURA: Bilateral small pleural effusions. No pneumothorax. HEART AND MEDIASTINUM: The thyroid gland is normal. No mediastinal, hilar or axillary lymphadenopathy. The heart is normal in size.. There is no pericardial effusion. There are mild to moderate atherosclerotic calcifications in the aorta and coronary arteries. UPPER ABDOMEN: Limited non-contrast views of the upper abdomen demonstrate mild high attenuation within the gallbladder lumen, likely sludge.. The adrenal glands are normal. BONES: There are degenerative changes in the thoracic spine. Multilevel vertebral hemangiomata. SOFT TISSUES: Unremarkable. IMPRESSION: Findings consistent with bilateral multifocal pneumonia, possibly aspiration in the proper clinical setting. Bilateral small pleural effusions. Signed by: Dr. Merna Carter M.D. on 04/20/2020 6:40 PM
[2020-04-20] MEDS ORDERED: LIDOCAINE HCL 2% LOCAL INJ 5 ML SDV VIAL INJ ONE (20:10)
[2020-04-20] MEDS ORDERED: ETOMIDATE 2 MG/ML 10 ML INJ IV ONE (20:10)
[2020-04-20] MEDS ORDERED: PROPOFOL IV EMULSION 10 MG/ML 20 ML VIAL ONE (20:10)
[2020-04-20] MEDS ORDERED: HALOPERIDOL LACTATE 5 MG/ML VIAL ONE (20:39)
[2020-04-20] MEDS ORDERED: HALOPERIDOL LACTATE 5 MG/ML VIAL IM ONE (21:45)
--- NOTE | 2020-04-20 21:56 | NUR ---
Dr Lance Leos ordered to discontinue Sandostatin drip and start Carafate PO as soon as patient no longer NPO, orders carried out.
[2020-04-21] VITALS (14 sets, daily range): BP systolic 104–172; BP diastolic 51–90
[2020-04-21] MEDS: VANCOMYCIN 500MG/NS 0.9% 100ML 100 ML IV SCH ×2 (03:30→15:01)
[2020-04-21 05:45] LABS: BASOPHILS # (AUTO) 0.1 (0.0-0.1); BASOPHILS % 0.3 % (0.0-1.0); HEMATOCRIT 23.1 % (38.2-49.6); HEMOGLOBIN 7.5 g/dL (14.0-18.0); LYMPHOCYTES # (AUTO) 1.1 (1.0-3.2); MEAN CORPUSCULAR HEMOGLOBIN 28.4 pg (28-32); MEAN CORPUSCULAR HGB CONC 32.5 g/dL (31-35); MEAN CORPUSCULAR VOLUME 87.5 fL (81-99); MONOCYTES # (AUTO) 1.1 (0.2-0.8); NEUTROPHILS # (AUTO) 12.7 (2.1-6.9); NEUTROPHILS % 84.8 % (38.7-80.0); PLATELET COUNT 280 x10e3/uL (140-360); RED BLOOD COUNT 2.64 x10e6/uL (4.3-5.7); RED CELL DISTRIBUTION WIDTH 15.5 % (11.7-14.4)
[2020-04-21] MEDS: METOPROLOL TARTRATE INJ 1 MG/ML VIAL IV PRN ×2 (05:45→08:00)
--- NOTE | 2020-04-21 05:52 | NUR ---
CALLED AND SPOKE WITH DR GUIDRY, PT HEART RATE NOW IS ON 150s to 160s. THE MD ORDERED METOPROLOL IV 10 MG IV Q2 HR IF HR GREATER THAN 100. ORDER READ BACK AND CARRIED OUT.
[2020-04-21 06:10] LABS: ALANINE AMINOTRANSFERASE 19 IU/L (0-55); ALBUMIN 2.8 g/dL (3.5-5.0); ALKALINE PHOSPHATASE 62 IU/L (40-150); ANION GAP 13.3 mmol/L (8-16); BLOOD UREA NITROGEN 12 mg/dL (7-26); BUN/CREATININE RATIO 14 (6-25); CALCIUM 8.2 mg/dL (8.4-10.2); CARBON DIOXIDE 24 mmol/L (22-29); CHLORIDE 114 mmol/L (98-107); CREATININE, SERUM 0.85 mg/dL (0.72-1.25); EST GLOMERULAR FILTRATION RATE > 60 ML/MIN (60-); GLUCOSE 178 mg/dL (74-118); MAGNESIUM 1.7 MG/DL (1.3-2.1); POTASSIUM 3.3 mmol/L (3.5-5.1); SODIUM 148 mmol/L (136-145)
--- NOTE | 2020-04-21 07:15 | NUR ---
received patient agitated and restless. Heart rate elevated 150's A FIB, per telemetry patient converted to A fib around 0400, will call Md for further orders.
[2020-04-21] MEDS: INSULIN LISPRO 100 UNIT/1 ML 3ML VIAL SQ SCH ×4 (07:30→21:00)
[2020-04-21] MEDS: SUCRALFATE 1 GM TAB PO SCH ×4 (07:30→21:00)
--- NOTE | 2020-04-21 07:45 | NUR ---
Informed Emiliano SAWMILL RELIEF WORKER, that patient heart rate remains elevated after 2 doses of Metoprolol 10 mg IVP given and per telemetry patient A FIB RVR, orders received and entered
[2020-04-21] MEDS: LORAZEPAM INJ 2 MG/ML VIAL IV PRN ×3 (07:59→23:00)
[2020-04-21] MEDS: PANTOPRAZOLE 40 MG 10ML VIAL IV SCH ×2 (07:59→17:34)
[2020-04-21] MEDS: MULTIVITAMINS/MINERALS TAB PO SCH (08:05)
[2020-04-21] MEDS: ZINC OXIDE 30 GM TUBE TOP SCH (08:05)
[2020-04-21] MEDS: OYST-CAL-D 500MG TABLET PO SCH ×2 (08:05→16:00)
[2020-04-21] MEDS: MAGNESIUM OXIDE 400 MG TAB PO SCH (08:05)
[2020-04-21] MEDS: BACITRACIN ZINC 15 GM OINT TOP SCH (08:05)
[2020-04-21] MEDS: ASCORBIC ACID 500 MG TAB PO SCH ×2 (08:05→16:00)
[2020-04-21] MEDS: ZINC SULFATE 50 MG CAP PO SCH ×2 (08:05→16:01)
[2020-04-21] MEDS ORDERED: AMIODARONE HCL 150 MG in DEXTROSE 5% 100ML 100 ML IV STA (08:46)
[2020-04-21] MEDS ORDERED: AMIODARONE HCL 900 MG in DEXTROSE 5% 500ML 500 ML IV SCH (09:00)
[2020-04-21] MEDS ORDERED: ZINC OXIDE/COD LIVER OIL 30 GM TUBE TOP SCH (09:00)
[2020-04-21] MEDS: IRON SUCROSE 100 MG in SODIUM CHLORIDE 0.9% 100 ML 100 ML IV SCH (11:41)
[2020-04-21] MEDS: DEXTROSE 5%/0.45% SOD CHL 1,000 ML IV SCH (11:41)
[2020-04-21] MEDS ORDERED: POTASSIUM CHLORIDE 20MEQ/100ML 100 ML IV ONE (11:45)
--- NOTE | 2020-04-21 12:39 | NUR ---
ST NOTE: Spoke with AMANDA Luque this AM, pt not appropriate due to restlessness and AMS. Checked pt status at 12:30, no change, will follow up bf end of day for readiness. If pt not appropriate, he will need NG tube for nutrition/hydration. Pt is restrained at this time.
[2020-04-21] MEDS: CEFEPIME 1GM/NS 0.9% 50 ML 50 ML IV SCH (13:38)
--- NOTE | 2020-04-21 13:58 | Progress Note ---
DATE: SUBJECTIVE: The patient is seen and evaluated. Discussed with the attending team. Discussed with the patient's daughter in the room. The patient remains agitated and confused, not much of interaction with me. He is currently combative in the bed, restrained upper extremities. Unable to obtain review of systems. PHYSICAL EXAMINATION: VITAL SIGNS: Temperature 99.9 at the max today, pulse 137, respirations 19, blood pressure 104/90. GENERAL: Comfortable in bed, confused, combative, restrained upper extremities. CV: S1 and S2. CHEST: Equal expansion. Decreased breath sounds. No acute distress. ABDOMEN: Soft. No distention. HEENT: Moist. No pallor. No JVD. EXTREMITIES: No significant edema. MEDICATIONS: Medication list reviewed. The patient is on vancomycin IV, cefepime, also zinc sulfate and vitamin C. LABORATORY STUDIES: White count of 14.99, hemoglobin 7.5, platelet 280. Sodium 148, potassium 3.3, creatinine 0.85. Vancomycin trough 3.5 on 04/19. Coronavirus PCR not detected on 04/18. MICROBIOLOGY: Blood culture negative 72 hours. RADIOLOGY STUDIES: CT of the chest from yesterday reviewed. Findings consistent with bilateral multifocal pneumonia, possibly aspiration in the proper clinical setting, bilateral small pleural effusions. ASSESSMENT AND PLAN: 1. Altered mental status. 2. Concern pneumonia, aspiration type. 3. Severe anemia. 4. Severe debility. The patient on vancomycin IV and cefepime, leukocytosis with T-max of 99.9 with concerns for aspiration pneumonia. We will add Flagyl. Recheck CBC tomorrow. Monitor the patient clinically. Follow up with the labs. Discussed with the attending team in regard to antibiotic plans and also discussed with the daughter. Discussed with Dr. Flores in detail. Dictated by Kurt Nogueira PA-C (Al) Marylou Flores MD /MODL /[id number]
[2020-04-21] MEDS: METRONIDAZOLE 500MG/NS 100ML 100 ML IV SCH ×2 (14:08→21:19)
--- NOTE | 2020-04-21 18:35 | Consultation ---
DATE OF CONSULTATION: 04/21/2020 REASON FOR CONSULTATION: AFib with RVR. GI bleed, altered mental status. HISTORY OF PRESENT ILLNESS: This is a 59-year-old male with history of diabetes. The patient presents to [facility] ER with altered mental status and weakness and pale in appearance, was noted to be severely anemic with a hemoglobin of 4, and also reported of coffee-grounds emesis. The patient underwent EGD, when he was found to have gastric ulcers, on appropriate medications per GI. However, also was noted to be hypoxic, underwent CT scan of the chest showing bilateral pneumonias. This a.m., the patient was noted to be in AFib with RVR. Cardiology was consulted to evaluate the patient. The patient was started on amiodarone drip. Currently, he is in AFib with a heart rate of 120. The patient is seen in room with daughter at bedside. The patient has been sedated due to his confusion, so no information was obtained from the patient; however, daughter reports the patient has history of diabetes, is not on any medications. He does have a history of heavy alcohol use and tobacco use, however, quit about two years ago. PAST MEDICAL HISTORY: Diabetes. SURGICAL HISTORY: No surgical history. SOCIAL HISTORY: He is . He works at [employer]. He used to drink at least one pack per day of beer, however, quit in 2018. Also, he was a heavy smoker at one pack per day for greater than 20 years, quit, however, in 2018. FAMILY HISTORY: No reports of CAD, stroke, cancer. ALLERGIES: NO KNOWN ALLERGIES. REVIEW OF SYSTEMS: Unable to obtain due to the patient's confusion and he has been sedated. PHYSICAL EXAMINATION: VITAL SIGNS: Height 66 inches, weight 165 pounds. Current vital signs temperature 99.9, pulse 136, respiratory rate 18, blood pressure 104/90, and pulse ox 94% on 2 L nasal cannula. GENERAL: The patient is sedated, unable to get any information. SKIN: No rashes or bruises noted. HEENT: Normocephalic. Pupils are equal and reactive. No JVD. No carotid bruits. Oral mucosa pink. HEART: Irregular rhythm and tachycardic with soft systolic murmur heard in the right upper sternal border. LUNGS: Bilaterally with rhonchi on nasal cannula. ABDOMEN: Soft, nontender, and nondistended. No organomegaly noted. VASCULAR: +2 radial pulses bilaterally, +1 DP and PT pulses bilaterally. NEUROLOGIC: Unable to obtain. The patient is sedated. LABORATORY DATA: White count 14.9, hemoglobin is 7, hematocrit of 23, and platelets of 280. Sodium 148, potassium 3.3, chloride 114, BUN 12, creatinine 0.8, and glucose 178. Troponins 0.02 x3. TSH of 0.21. INR 1.05, PTT 25, and PT 14. Stool DANO positive. COVID negative. IMAGING DATA: CT of chest done on 04/20/2020, showing bilateral multifocal pneumonia consistent with aspiration. EKG showing AFib with RVR with heart rate in 130s. ASSESSMENT: 1. Gastrointestinal bleed, status post esophagogastroduodenoscopy showing gastric ulcers. 2. Aspiration pneumonia. 3. Atrial fibrillation with rapid ventricular response. 4. Metabolic encephalopathy secondary to probable infection. PLAN: 1. The patient presents to [facility] with altered mental status, notable with coffee-grounds emesis. Hemoglobin of 4 on admission, status post multiple blood transfusions and EGD showing gastric ulcer. This a.m., the patient went into AFib with RVR. We tried rhythm suppression with amiodarone. 2. We will continue beta-beatriz therapy for heart rate control. 3. We will obtain echo to evaluate heart function structure. 4. The patient on PPI management as per GI. 5. Further recommendations as course progresses. Thank you very much for this consult. Agree with note Dictated by Bradly Ambrocio, RUKHSANA Bubba Piedra MD DC/SKY /[id number] INGRID
[2020-04-22] VITALS (14 sets, daily range): BP systolic 148–185; BP diastolic 52–90
[2020-04-22] MEDS: VANCOMYCIN 500MG/NS 0.9% 100ML 100 ML IV SCH (03:00)
[2020-04-22] MEDS: LORAZEPAM INJ 2 MG/ML VIAL IV PRN ×2 (05:00→23:32)
[2020-04-22 05:41] LABS: BASOPHILS # (AUTO) 0.1 (0.0-0.1); BASOPHILS % 0.3 % (0.0-1.0); HEMATOCRIT 22.9 % (38.2-49.6); HEMOGLOBIN 7.5 g/dL (14.0-18.0); LYMPHOCYTES # (AUTO) 1.4 (1.0-3.2); LYMPHOCYTES % 7.4 % (18.0-39.1); MEAN CORPUSCULAR HEMOGLOBIN 28.7 pg (28-32); MEAN CORPUSCULAR HGB CONC 32.8 g/dL (31-35); MEAN CORPUSCULAR VOLUME 87.7 fL (81-99); MONOCYTES # (AUTO) 1.4 (0.2-0.8); MONOCYTES % 7.3 % (4.4-11.3); NEUTROPHILS # (AUTO) 15.9 (2.1-6.9); NEUTROPHILS % 84.4 % (38.7-80.0); PLATELET COUNT 312 x10e3/uL (140-360); RED BLOOD COUNT 2.61 x10e6/uL (4.3-5.7)
[2020-04-22] MEDS: METRONIDAZOLE 500MG/NS 100ML 100 ML IV SCH ×3 (06:16→21:54)
[2020-04-22] MEDS: METOPROLOL TARTRATE INJ 1 MG/ML VIAL IV PRN (06:17)
[2020-04-22 06:32] LABS: ALANINE AMINOTRANSFERASE 32 IU/L (0-55); ALBUMIN 2.9 g/dL (3.5-5.0); ALBUMIN/GLOBULIN RATIO 0.9 (0.8-2.0); ALKALINE PHOSPHATASE 65 IU/L (40-150); ANION GAP 13.4 mmol/L (8-16); BLOOD UREA NITROGEN 15 mg/dL (7-26); BUN/CREATININE RATIO 16 (6-25); CALCIUM 8.3 mg/dL (8.4-10.2); CARBON DIOXIDE 24 mmol/L (22-29); CHLORIDE 116 mmol/L (98-107); CREATININE, SERUM 0.92 mg/dL (0.72-1.25); EST GLOMERULAR FILTRATION RATE > 60 ML/MIN (60-); GLUCOSE 209 mg/dL (74-118); MAGNESIUM 1.7 MG/DL (1.3-2.1); POTASSIUM 3.4 mmol/L (3.5-5.1); SODIUM 150 mmol/L (136-145)
[2020-04-22] MEDS: SUCRALFATE 1 GM TAB PO SCH ×4 (07:30→21:25)
[2020-04-22] MEDS: INSULIN LISPRO 100 UNIT/1 ML 3ML VIAL SQ SCH ×4 (08:13→23:33)
[2020-04-22] MEDS: DEXTROSE 5%/0.45% SOD CHL 1,000 ML IV SCH (08:13)
[2020-04-22] MEDS: PANTOPRAZOLE 40 MG 10ML VIAL IV SCH ×2 (08:13→17:39)
[2020-04-22] MEDS: MAGNESIUM OXIDE 400 MG TAB PO SCH (08:13)
[2020-04-22] MEDS: ASCORBIC ACID 500 MG TAB PO SCH ×2 (08:14→17:00)
[2020-04-22] MEDS: MULTIVITAMINS/MINERALS TAB PO SCH (08:14)
[2020-04-22] MEDS: ZINC SULFATE 50 MG CAP PO SCH ×2 (08:14→17:00)
[2020-04-22] MEDS: OYST-CAL-D 500MG TABLET PO SCH ×2 (08:14→17:00)
[2020-04-22] MEDS: ZINC OXIDE 30 GM TUBE TOP SCH (08:27)
[2020-04-22] MEDS: BACITRACIN ZINC 15 GM OINT TOP SCH (09:22)
[2020-04-22] MEDS ORDERED: POTASSIUM CHLORIDE 20MEQ/100ML 200 ML IV ONE (09:30)
[2020-04-22] MEDS ORDERED: DEXTROSE 5%/0.225% SOD CHL 1,000 ML IV SCH (10:00)
[2020-04-22] MEDS: IRON SUCROSE 100 MG in SODIUM CHLORIDE 0.9% 100 ML 100 ML IV SCH (13:25)
[2020-04-22] MEDS: CEFEPIME 1GM/NS 0.9% 50 ML 50 ML IV SCH (13:30)
[2020-04-22] MEDS: VANCOMYCIN 1GM/NS 250 ML 250 ML IV SCH (15:49)
[2020-04-22] MEDS: HYDRALAZINE HCL 20 MG/ML VIAL IV PRN (20:07)
[2020-04-23] VITALS (15 sets, daily range): BP systolic 124–193; BP diastolic 70–87
[2020-04-23] MEDS: METOPROLOL TARTRATE INJ 1 MG/ML VIAL IV PRN (02:31)
[2020-04-23] MEDS ORDERED: HALOPERIDOL LACTATE 5 MG/ML VIAL IM ONE (03:45)
[2020-04-23] MEDS: VANCOMYCIN 1GM/NS 250 ML 250 ML IV SCH ×2 (04:21→16:00)
[2020-04-23 06:10] LABS: BASOPHILS # (AUTO) 0.1 (0.0-0.1); BASOPHILS % 0.4 % (0.0-1.0); EOSINOPHILS % 0.1 % (0.0-6.0); HEMATOCRIT 22.9 % (38.2-49.6); HEMOGLOBIN 7.4 g/dL (14.0-18.0); LYMPHOCYTES # (AUTO) 0.7 (1.0-3.2); LYMPHOCYTES % 4.5 % (18.0-39.1); MEAN CORPUSCULAR HEMOGLOBIN 28.6 pg (28-32); MEAN CORPUSCULAR HGB CONC 32.3 g/dL (31-35); MEAN CORPUSCULAR VOLUME 88.4 fL (81-99); MONOCYTES # (AUTO) 0.9 (0.2-0.8); MONOCYTES % 5.7 % (4.4-11.3); NEUTROPHILS # (AUTO) 14.5 (2.1-6.9); NEUTROPHILS % 88.3 % (38.7-80.0); PLATELET COUNT 302 x10e3/uL (140-360); RED BLOOD COUNT 2.59 x10e6/uL (4.3-5.7); RED CELL DISTRIBUTION WIDTH 16.4 % (11.7-14.4)
[2020-04-23] MEDS: METRONIDAZOLE 500MG/NS 100ML 100 ML IV SCH ×3 (06:17→22:13)
[2020-04-23 06:24] LABS: ALANINE AMINOTRANSFERASE 35 IU/L (0-55); ALBUMIN 2.6 g/dL (3.5-5.0); ALBUMIN/GLOBULIN RATIO 0.8 (0.8-2.0); ALKALINE PHOSPHATASE 55 IU/L (40-150); ANION GAP 13.5 mmol/L (8-16); BLOOD UREA NITROGEN 15 mg/dL (7-26); BUN/CREATININE RATIO 18 (6-25); CALCIUM 8.1 mg/dL (8.4-10.2); CARBON DIOXIDE 22 mmol/L (22-29); CHLORIDE 114 mmol/L (98-107); CREATININE, SERUM 0.84 mg/dL (0.72-1.25); EST GLOMERULAR FILTRATION RATE > 60 ML/MIN (60-); GLUCOSE 174 mg/dL (74-118); POTASSIUM 3.5 mmol/L (3.5-5.1); SODIUM 146 mmol/L (136-145)
[2020-04-23] MEDS: INSULIN LISPRO 100 UNIT/1 ML 3ML VIAL SQ SCH ×5 (06:33→19:00)
[2020-04-23] MEDS: SUCRALFATE 1 GM TAB PO SCH ×5 (07:30→22:00)
[2020-04-23] MEDS: OYST-CAL-D 500MG TABLET PO SCH ×2 (09:00→17:00)
[2020-04-23] MEDS: MULTIVITAMINS/MINERALS TAB PO SCH (09:00)
[2020-04-23] MEDS: MAGNESIUM OXIDE 400 MG TAB PO SCH (09:00)
[2020-04-23] MEDS: ZINC SULFATE 50 MG CAP PO SCH ×2 (09:00→17:00)
[2020-04-23] MEDS: ASCORBIC ACID 500 MG TAB PO SCH ×2 (09:00→17:00)
[2020-04-23] MEDS: BACITRACIN ZINC 15 GM OINT TOP SCH (09:05)
[2020-04-23] MEDS: ZINC OXIDE 30 GM TUBE TOP SCH (09:05)
[2020-04-23] MEDS: PANTOPRAZOLE 40 MG 10ML VIAL IV SCH ×2 (09:05→17:15)
[2020-04-23] MEDS: IRON SUCROSE 100 MG in SODIUM CHLORIDE 0.9% 100 ML 100 ML IV SCH (12:15)
--- NOTE | 2020-04-23 12:40 | NUR ---
Nutrition Screen Note RD Recommendation for Physician: Continue diet as ordered with Glucerna TID with meals. Pt may require nutrition support if mental status does not improve and PO intake remains poor. Plan of Care: RD following monitoring for tolerance and adequacy Nutrition reason for involvement: MD Consult, LOS Primary Diagnose(s): AMS, GIB weakness PMH: T2DM Ht: 66 in Wt:151 lbs BMI:24.4 kg/m2 IBW: [address] Assessment: Initial encounter with patient. Consult received regarding oral nutrition supplement. RD to provide Gucerna TID with meals. Pt with an altered mental status and has been too confused to eat. Pt also has an active GI Bleed and nutrition support via nasoenteric tube is probably not indicated at this time. Daughter was at bedside. Daughter states that pt was eating well LEAD CONSULTANT and had no known food allergies. Pt had no significant wt changes. BUTADIENE CONVERTER OPERATOR note reviewed. Current Diet: 1600 calorie ADA Malnutrition Evaluation (04/23/2020) The patient does not meet criteria for a specified degree of malnutrition at this time. Will re-evaluate at follow-up as appropriate. Diet Education Needs Assessment: Diet education not indicated at this time due to altered mental status. Diet tolerance: Diet tolereated Nutrition Care Level: Moderate Doug Ferguson RD, LD, CNSC
[2020-04-23] MEDS: HYDRALAZINE HCL 20 MG/ML VIAL IV PRN (13:27)
[2020-04-23] MEDS: CEFEPIME 1GM/NS 0.9% 50 ML 50 ML IV SCH (13:45)
[2020-04-23] MEDS: SOD CHL IV SCH (17:57)
[2020-04-23] MEDS: DEXTROSE IV SCH (17:57)
[2020-04-23] MEDS: POTASSIUM CHLORIDE IV SCH (17:57)
--- NOTE | 2020-04-23 19:07 | NUR ---
CHANGE OF SHIFT REPORT GIVEN TO ROXY Rosales RN.
--- NOTE | 2020-04-23 19:20 | NUR ---
Received patient from day nurse, patient is in bilateral restraints for ams. Patient is alert and oriented x 1. bilateral wrist inspected and warm, pulses present, circulation intact, range of motion done, no signs of injury, skin intergrity is good, patient denied bm, no wet linen at this time, patient offered apple juice and accepted, patient is not in distress. patient not ready for dc of restraints upon assessment, patient is not following commands and reaching to pull medical devices, family aware, Piedad was called and ordered to continue restraints. Patient is currrently stable will continue to monitor.
[2020-04-24] VITALS (9 sets, daily range): BP systolic 130–174; BP diastolic 48–86
[2020-04-24] MEDS: LORAZEPAM INJ 2 MG/ML VIAL IV PRN (00:14)
[2020-04-24] MEDS: INSULIN LISPRO 100 UNIT/1 ML 3ML VIAL SQ SCH ×4 (01:00→19:00)
[2020-04-24] MEDS: VANCOMYCIN 1GM/NS 250 ML 250 ML IV SCH ×2 (05:13→16:30)
[2020-04-24] MEDS: METRONIDAZOLE 500MG/NS 100ML 100 ML IV SCH ×3 (06:00→22:15)
--- NOTE | 2020-04-24 07:14 | NUR ---
Patient endorsed to next shift for continuity of care.
[2020-04-24 07:26] LABS: BASOPHILS % 0.3 % (0.0-1.0); EOSINOPHILS # (AUTO) 0.3 (0.0-0.4); EOSINOPHILS % 2.4 % (0.0-6.0); LYMPHOCYTES # (AUTO) 1.2 (1.0-3.2); LYMPHOCYTES % 10.9 % (18.0-39.1); MEAN CORPUSCULAR HEMOGLOBIN 28.3 pg (28-32); MEAN CORPUSCULAR VOLUME 88.4 fL (81-99); MONOCYTES # (AUTO) 0.8 (0.2-0.8); MONOCYTES % 7.5 % (4.4-11.3); NEUTROPHILS # (AUTO) 8.3 (2.1-6.9); NEUTROPHILS % 78.3 % (38.7-80.0); PLATELET COUNT 306 x10e3/uL (140-360); RED BLOOD COUNT 2.33 x10e6/uL (4.3-5.7)
[2020-04-24 07:30] LABS: HEMATOCRIT 20.6 % (38.2-49.6); HEMOGLOBIN 6.6 g/dL (14.0-18.0)
[2020-04-24] MEDS: SUCRALFATE 1 GM TAB PO SCH ×4 (07:30→22:15)
[2020-04-24 07:51] LABS: ALANINE AMINOTRANSFERASE 26 IU/L (0-55); ALBUMIN 2.1 g/dL (3.5-5.0); ALBUMIN/GLOBULIN RATIO 0.7 (0.8-2.0); ALKALINE PHOSPHATASE 46 IU/L (40-150); ANION GAP 9.2 mmol/L (8-16); BLOOD UREA NITROGEN 13 mg/dL (7-26); BUN/CREATININE RATIO 18 (6-25); CALCIUM 7.6 mg/dL (8.4-10.2); CARBON DIOXIDE 26 mmol/L (22-29); CHLORIDE 109 mmol/L (98-107); CREATININE, SERUM 0.72 mg/dL (0.72-1.25); EST GLOMERULAR FILTRATION RATE > 60 ML/MIN (60-); GLUCOSE 160 mg/dL (74-118); MAGNESIUM 1.7 MG/DL (1.3-2.1); POTASSIUM 3.2 mmol/L (3.5-5.1); SODIUM 141 mmol/L (136-145)
[2020-04-24] MEDS: MAGNESIUM OXIDE 400 MG TAB PO SCH (08:31)
[2020-04-24] MEDS: ASCORBIC ACID 500 MG TAB PO SCH ×2 (08:31→16:36)
[2020-04-24] MEDS: OYST-CAL-D 500MG TABLET PO SCH ×2 (08:31→16:36)
[2020-04-24] MEDS: MULTIVITAMINS/MINERALS TAB PO SCH (08:31)
[2020-04-24] MEDS: ZINC SULFATE 50 MG CAP PO SCH ×2 (08:32→16:36)
--- NOTE | 2020-04-24 09:07 | NUR ---
flores and K reported to
[2020-04-24] MEDS: ZINC OXIDE 30 GM TUBE TOP SCH (09:20)
[2020-04-24] MEDS: PANTOPRAZOLE 40 MG 10ML VIAL IV SCH ×2 (09:20→16:36)
[2020-04-24] MEDS: BACITRACIN ZINC 15 GM OINT TOP SCH (09:20)
[2020-04-24] MEDS ORDERED: LORAZEPAM INJ 2 MG/ML VIAL IV PRN (09:30)
[2020-04-24] MEDS ORDERED: SODIUM CHLORIDE 0.9% 250ML 250 ML IV ONE (09:30)
[2020-04-24] MEDS ORDERED: POTASSIUM CHLORIDE 20MEQ/100ML 200 ML IV ONE (09:30)
[2020-04-24] MEDS: GABAPENTIN 100 MG CAP PO SCH ×2 (09:30→16:36)
[2020-04-24] MEDS: DEXTROSE IV SCH (12:26)
[2020-04-24] MEDS: SOD CHL IV SCH (12:26)
[2020-04-24] MEDS: POTASSIUM CHLORIDE IV SCH (12:26)
[2020-04-24] MEDS: IRON SUCROSE 100 MG in SODIUM CHLORIDE 0.9% 100 ML 100 ML IV SCH (13:07)
[2020-04-24] MEDS: CEFEPIME 1GM/NS 0.9% 50 ML 50 ML IV SCH (15:01)
[2020-04-24] MEDS ORDERED: SODIUM CHLORIDE 0.9% 250ML 0 ML ONE (16:02)
--- NOTE | 2020-04-24 19:00 | NUR ---
1900:Patient has no restraints at this time.
[2020-04-25] VITALS: BP 127/59
[2020-04-25] MEDS: INSULIN LISPRO 100 UNIT/1 ML 3ML VIAL SQ SCH ×4 (01:00→20:43)
[2020-04-25 04:54] VITALS: BP 145/74
[2020-04-25] MEDS: VANCOMYCIN 1GM/NS 250 ML 250 ML IV SCH ×2 (05:00→17:06)
[2020-04-25 06:42] LABS: ALANINE AMINOTRANSFERASE 23 IU/L (0-55); ALBUMIN 1.8 g/dL (3.5-5.0); ALBUMIN/GLOBULIN RATIO 0.7 (0.8-2.0); ALKALINE PHOSPHATASE 37 IU/L (40-150); ANION GAP 8.1 mmol/L (8-16); BLOOD UREA NITROGEN 11 mg/dL (7-26); BUN/CREATININE RATIO 18 (6-25); CARBON DIOXIDE 22 mmol/L (22-29); CHLORIDE 114 mmol/L (98-107); CREATININE, SERUM 0.62 mg/dL (0.72-1.25); EST GLOMERULAR FILTRATION RATE > 60 ML/MIN (60-); GLUCOSE 104 mg/dL (74-118); POTASSIUM 3.1 mmol/L (3.5-5.1); SODIUM 141 mmol/L (136-145)
[2020-04-25 06:44] LABS: CALCIUM 6.5 mg/dL (8.4-10.2)
--- NOTE | 2020-04-25 06:46 | NUR ---
Calcium 6.5, Elizabeth made aware, awaiting orders.
[2020-04-25 06:56] LABS: BASOPHILS # (AUTO) 0.1 (0.0-0.1); BASOPHILS % 0.6 % (0.0-1.0); EOSINOPHILS # (AUTO) 0.2 (0.0-0.4); EOSINOPHILS % 2.7 % (0.0-6.0); HEMATOCRIT 23.8 % (38.2-49.6); HEMOGLOBIN 7.7 g/dL (14.0-18.0); LYMPHOCYTES # (AUTO) 1.4 (1.0-3.2); LYMPHOCYTES % 15.4 % (18.0-39.1); MEAN CORPUSCULAR HGB CONC 32.4 g/dL (31-35); MEAN CORPUSCULAR VOLUME 86.5 fL (81-99); MONOCYTES # (AUTO) 0.8 (0.2-0.8); MONOCYTES % 8.6 % (4.4-11.3); NEUTROPHILS # (AUTO) 6.5 (2.1-6.9); RED BLOOD COUNT 2.75 x10e6/uL (4.3-5.7); RED CELL DISTRIBUTION WIDTH 15.6 % (11.7-14.4)
[2020-04-25] MEDS: METRONIDAZOLE 500MG/NS 100ML 100 ML IV SCH ×3 (07:00→21:41)
--- NOTE | 2020-04-25 07:00 | NUR ---
BEDSIDE SHIFT REPORT RECEIVED FROM RN SUKUMAR. PT DENIES NEEDS AT THIS TIME.
[2020-04-25 08:00] VITALS: BP 160/73
[2020-04-25 08:23] LABS: PLATELET COUNT 217 x10e3/uL (140-360); PLATELET ESTIMATE ADEQUATE
[2020-04-25 08:24] LABS: ANISOCYTOSIS SLIGHT; PLATELET MORPHOLOGY COMMENT FEW EDTA CLUMPING; RBC MORPHOLOGY COMMENT NORMAL
[2020-04-25] MEDS: SUCRALFATE 1 GM TAB PO SCH ×4 (08:40→20:13)
[2020-04-25] MEDS: PANTOPRAZOLE 40 MG 10ML VIAL IV SCH ×2 (08:40→17:06)
[2020-04-25] MEDS: BACITRACIN ZINC 15 GM OINT TOP SCH (08:42)
[2020-04-25] MEDS: ZINC OXIDE 30 GM TUBE TOP SCH (08:42)
[2020-04-25] MEDS: MAGNESIUM OXIDE 400 MG TAB PO SCH (08:42)
[2020-04-25] MEDS: GABAPENTIN 100 MG CAP PO SCH ×2 (08:42→17:06)
[2020-04-25] MEDS: ASCORBIC ACID 500 MG TAB PO SCH ×2 (08:42→17:06)
[2020-04-25] MEDS: OYST-CAL-D 500MG TABLET PO SCH ×2 (08:42→17:06)
[2020-04-25] MEDS: ZINC SULFATE 50 MG CAP PO SCH ×2 (08:42→17:07)
[2020-04-25] MEDS: MULTIVITAMINS/MINERALS TAB PO SCH (08:42)
[2020-04-25] MEDS: METOPROLOL TARTRATE 25 MG TAB PO SCH ×2 (09:28→17:06)
[2020-04-25] MEDS ORDERED: ASCORBIC ACID500 MG PO (09:50)
[2020-04-25] MEDS ORDERED: CARAFATE1 GM PO (09:50)
[2020-04-25] MEDS ORDERED: LOPRESSOR25 MG PO (09:50)
[2020-04-25] MEDS ORDERED: ZESTRIL20 MG PO (09:51)
[2020-04-25] MEDS ORDERED: FERROUS SULFAT325 MG PO (09:56)
[2020-04-25] MEDS ORDERED: PANTOPRAZOLE SO40 MG PO (10:05)
[2020-04-25] MEDS ORDERED: POTASSIUM CHLORIDE 20MEQ/100ML 200 ML IV ONE (10:30)
[2020-04-25] MEDS: POTASSIUM CHLORIDE IV SCH (10:42)
[2020-04-25] MEDS: DEXTROSE IV SCH (10:42)
[2020-04-25] MEDS: SOD CHL IV SCH (10:42)
[2020-04-25] MEDS ORDERED: CALCIUM GLUCONATE 10% INJ 9.3 MEQ in SODIUM CHLORIDE 0.9% 100 ML 100 ML IV ONE (11:00)
[2020-04-25 11:36] VITALS: BP 199/85
[2020-04-25] MEDS: IRON SUCROSE 100 MG in SODIUM CHLORIDE 0.9% 100 ML 100 ML IV SCH (14:05)
[2020-04-25] MEDS: CEFEPIME 1GM/NS 0.9% 50 ML 50 ML IV SCH (14:06)
[2020-04-25] MEDS: HYDRALAZINE HCL 20 MG/ML VIAL IV PRN (14:46)
--- NOTE | 2020-04-25 15:15 | NUR ---
PT OFF THE FLOOR TO [employer]
--- NOTE | 2020-04-25 17:30 | NUR ---
PT BACK TO ROOM FROM [employer]. PT TOLERATED AND DENIES NEEDS AT THIS TIME. AT BEDSIDE.
[2020-04-25 18:36] LABS: HEMOGLOBIN 10.1 g/dL (14.0-18.0)
[2020-04-25 18:48] LABS: CALCIUM 8.6 mg/dL (8.4-10.2); CALCIUM IONIZED 1.2 mmol/L (1.09-1.30)
--- NOTE | 2020-04-25 19:05 | Diagnostic Imaging Report ---
Tagged-RBC GI Bleed Study Clinical information: 59-year-old male with anemia, AMS and black stools. Discussion: The patient's own red blood cells were labeled with 23.7 mCi of technetium-99m pertechnetate using the in vitro method (UltraTag). Dynamic images of the abdomen were obtained through 60 minutes. Distribution of tracer activity appears physiologic throughout the abdomen. No abnormal accumulation of tracer is seen within the gastrointestinal lumen. Impression: No scan evidence of active gastrointestinal bleeding at this time. Signed by: Dr. Jessica Davidson M.D. on 04/25/2020 7:02 PM
[2020-04-25 20:00] VITALS: BP 153/69
[2020-04-25 21:01] VITALS: BP 153/69
[2020-04-26] VITALS (7 sets, daily range): BP systolic 126–182; BP diastolic 60–108
[2020-04-26] MEDS: INSULIN LISPRO 100 UNIT/1 ML 3ML VIAL SQ SCH ×3 (01:00→12:07)
[2020-04-26] MEDS: VANCOMYCIN 1GM/NS 250 ML 250 ML IV SCH (04:00)
[2020-04-26 05:32] LABS: BASOPHILS % 0.4 % (0.0-1.0); EOSINOPHILS # (AUTO) 0.4 (0.0-0.4); HEMATOCRIT 27.5 % (38.2-49.6); HEMOGLOBIN 9.3 g/dL (14.0-18.0); LYMPHOCYTES # (AUTO) 1.5 (1.0-3.2); LYMPHOCYTES % 15.3 % (18.0-39.1); MEAN CORPUSCULAR HEMOGLOBIN 28.5 pg (28-32); MEAN CORPUSCULAR HGB CONC 33.8 g/dL (31-35); MEAN CORPUSCULAR VOLUME 84.4 fL (81-99); MONOCYTES % 9.9 % (4.4-11.3); NEUTROPHILS # (AUTO) 6.8 (2.1-6.9); NEUTROPHILS % 69.9 % (38.7-80.0); PLATELET COUNT 378 x10e3/uL (140-360); RED BLOOD COUNT 3.26 x10e6/uL (4.3-5.7)
[2020-04-26 05:41] LABS: ALANINE AMINOTRANSFERASE 31 IU/L (0-55); ALBUMIN 2.2 g/dL (3.5-5.0); ALBUMIN/GLOBULIN RATIO 0.7 (0.8-2.0); ALKALINE PHOSPHATASE 49 IU/L (40-150); ANION GAP 11.5 mmol/L (8-16); BLOOD UREA NITROGEN 10 mg/dL (7-26); BUN/CREATININE RATIO 14 (6-25); CALCIUM 8.2 mg/dL (8.4-10.2); CARBON DIOXIDE 25 mmol/L (22-29); CHLORIDE 104 mmol/L (98-107); CREATININE, SERUM 0.73 mg/dL (0.72-1.25); EST GLOMERULAR FILTRATION RATE > 60 ML/MIN (60-); GLUCOSE 121 mg/dL (74-118); POTASSIUM 3.5 mmol/L (3.5-5.1); SODIUM 137 mmol/L (136-145)
[2020-04-26] MEDS: DEXTROSE IV SCH (05:51)
[2020-04-26] MEDS: POTASSIUM CHLORIDE IV SCH (05:51)
[2020-04-26] MEDS: SOD CHL IV SCH (05:51)
[2020-04-26] MEDS: METRONIDAZOLE 500MG/NS 100ML 100 ML IV SCH ×2 (05:51→13:28)
[2020-04-26] MEDS ORDERED: ALTEPLASE RECOMBINANT 2 MG/2 ML VIAL IV PRN (06:45)
--- NOTE | 2020-04-26 07:00 | NUR ---
BEDSIDE SHIFT REPORT FROM AMANDA HENRY. PT DENIES NEEDS AT THIS TIME.
[2020-04-26] MEDS: PANTOPRAZOLE 40 MG 10ML VIAL IV SCH (07:46)
[2020-04-26] MEDS: SUCRALFATE 1 GM TAB PO SCH ×2 (07:46→11:51)
[2020-04-26] MEDS: MULTIVITAMINS/MINERALS TAB PO SCH (07:47)
[2020-04-26] MEDS: ZINC SULFATE 50 MG CAP PO SCH (07:47)
[2020-04-26] MEDS: ASCORBIC ACID 500 MG TAB PO SCH (07:47)
[2020-04-26] MEDS: OYST-CAL-D 500MG TABLET PO SCH (07:47)
[2020-04-26] MEDS: GABAPENTIN 100 MG CAP PO SCH (07:47)
[2020-04-26] MEDS: METOPROLOL TARTRATE 25 MG TAB PO SCH (07:47)
[2020-04-26] MEDS: MAGNESIUM OXIDE 400 MG TAB PO SCH (07:47)
[2020-04-26] MEDS: ZINC OXIDE 30 GM TUBE TOP SCH (07:47)
[2020-04-26] MEDS: IRON SUCROSE 100 MG in SODIUM CHLORIDE 0.9% 100 ML 100 ML IV SCH (11:39)
[2020-04-26] MEDS: CEFEPIME 1GM/NS 0.9% 50 ML 50 ML IV SCH (13:28)
[2020-04-26] MEDS: HYDRALAZINE HCL 20 MG/ML VIAL IV PRN (13:29)
[2020-04-26] MEDS ORDERED: MAG-OXIDE400 MG PO (13:38)
[2020-04-26] MEDS ORDERED: Multivitamins/Minerals PO (13:38)
[2020-04-26] MEDS ORDERED: Calcium Carbonate PO (13:38)
[2020-04-26] MEDS ORDERED: Zinc Sulfate PO (13:39)
--- NOTE | 2020-04-26 16:17 | Discharge Summary ---
PRIMARY CARE PHYSICIAN: He does not have a PCP. CONSULTING PHYSICIANS: Included: 1. Marylou Flores M.D. 2. Bubba Piedra M.D. 3. Solitario Mchugh M.D. 4. Elias Leos M.D. 5. Sy Oliva DPM. CHIEF COMPLAINT: Pale, weak, with black stools. HISTORY OF PRESENT ILLNESS: The patient is a 59-year-old male, who was admitted with black stools and significant weakness. In the Emergency Department, vital signs were temperature 99.8, heart rate 102, respirations 14, blood pressure 151/64 with an oxygen saturation of 100%. At that time, he was confused, oriented to person only. His daughter stated that the patient worked on Saturday, did not eat, vomited, complained of leg numbness, felt tired and wanted to sleep. The patient went to a clinic on the Saturday prior to admission due to a cut on his foot. As far as the daughter knows, no medications or treatments were prescribed at that time. PAST MEDICAL HISTORY: Diabetes mellitus. PAST SURGICAL HISTORY: None. FAMILY HISTORY: Unknown per his daughter. SOCIAL HISTORY: The patient had a 5-year history of heavy smoking, 3-4 packs per day as well as a 5-year history of heavy drinking, six pack of beer per day. Denies any illicit drugs. He has stopped smoking and drinking about 3 or 4 years ago. He is , with children, has several daughters. 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 ALLERGIES: NO KNOWN ALLERGIES. ADMITTING DIAGNOSES: 1. Gastrointestinal bleed with severe anemia due to acute blood loss. 2. Sepsis versus SIRS, POA. 3. Altered mental status, likely due to severe anemia, more so than infection. 4. Acute kidney injury, baseline creatinine and GFR are unknown. 5. Uncontrolled type 2 diabetes mellitus with hyperglycemia. 6. Right foot wound laceration. 7. Mild acute hyponatremia. 8. Probable severe obstructive sleep apnea. DISCHARGE DIAGNOSES: 1. Acute blood loss anemia secondary to gastrointestinal bleed. 2. Aspiration pneumonia. 3. Paroxysmal atrial fibrillation. 4. Hypocalcemia. 5. Hypokalemia. On admission, his H and H were extremely low, hemoglobin 4.6 and hematocrit 13.7, subsequently 4.3 and 13. He was given a total of 4 units of blood during his stay. Today, hemoglobin 9.3, hematocrit 27.5, and WBCs are 9.72. On admission, sodium 134, potassium 4.6, chloride 97, CO2 of 29, anion gap 12.6, BUN 91, creatinine 1.31, estimated GFR 56, glucose 320, hemoglobin A1c 6.3%, and calcium 8.8. Total bilirubin 0.2, AST 16, ALT 17, and alkaline phosphatase 43. He was on vancomycin and vancomycin trough level is within normal limits. Fecal occult blood test on 04/18 was positive. The Coronavirus PCR not detected on 04/18. Blood cultures x2 collected on 04/18 showed no growth after 5 days. Initial chest x-ray was negative. CT of the brain showed no acute intracranial abnormalities. CT of the chest on 04/20 showed the findings consistent with bilateral multifocal pneumonia, possibly aspiration in the proper clinical settings, bilateral small pleural effusions. He underwent a nuclear medicine GI bleed scan on 04/25, which showed no evidence of acute gastrointestinal bleeding. The EGD and colonoscopy on 04/20, EGD showed esophagitis, duodenitis, gastritis, and gastric ulcer. The patient was confused with metabolic encephalopathy, required one-to-one sitter, wrist restraints, p.r.n. Ativan, had iatrogenic PICC removal on or about 04/19. He had a grade 2 ulceration in the plantar aspect of the right foot without active bleeding, which Podiatry followed in, there was offloading Bactroban cream, 5 wound healing medications, vancomycin and cefepime per Infectious Disease. He seemed to have obvious obstructive sleep apnea when I saw him on or about 04/18, but the next day, his sleep looked much better controlled. He did require BiPAP use at least one night. The patient also has a history of COPD without acute exacerbation and acute metabolic encephalopathy is likely due to the bilateral multifocal pneumonia, which is improved with antibiotics. The patient is currently alert and oriented x3. BiPAP was 18/6. He did develop atrial fibrillation with RVR and Cardiology followed. He is on amiodarone drip, which was changed to oral and then metoprolol 25 mg p.o. b.i.d., still having some hypertension. Blood pressure today 169/80, temperature 98.1, heart rate 80, respirations 20, oxygen saturation 97% on room air. No complaints. Venofer infusing at 50 mL an hour for possible cause of multifocal pneumonia aspiration with WBC count 18.8 on 04/22. Dysphagia, improved at this point. He was on pureed diet. Final 2 units of blood were ordered on 04/24, poor appetite had been noted. At the time of discharge on cefepime, Flagyl, and vancomycin IV, however, Infectious Disease states that the patient no longer needs IV antibiotics, no prescriptions for outpatient antibiotics noted per RUKHSANA Abdullahi with Dr. Piedra. The patient go home on metoprolol 25 mg p.o. b.i.d. Today, sodium 137, potassium 3.5, chloride 104, CO2 of 25, BUN 10, creatinine 0.73, and glucose 121. The patient continue ADA diet. Activity level as tolerated. Follow up with PCP in 1-2 weeks. Dictated by Emiliano De Leon NP MD IVETTE Armando/SKY /[id number]
== END 2020-04-26 17:00 | disposition home or self-care (01) | DRG 871 ==
LOC: ER 06:28 → ERHOLD 09:36 → IMCU 10:21
PROVIDERS: ADMIT Internal Medicine; ATTEND Internal Medicine
PROC: 0DB68ZX Excision of Stomach, Via Natural or Artificial Opening Endoscopic, Diagnostic (ICD-10-PCS; principal; 2020-04-18)
PROC: 0DB78ZX Excision of Stomach, Pylorus, Via Natural or Artificial Opening Endoscopic, Diagnostic (ICD-10-PCS; 2020-04-18)
DX: A41.9 Sepsis, unspecified organism (principal); G93.41 Metabolic encephalopathy; K29.71 Gastritis, unspecified, with bleeding; D62 Acute posthemorrhagic anemia; E87.1 Hypo-osmolality and hyponatremia; N17.9 Acute kidney failure, unspecified; E11.9 Type 2 diabetes mellitus without complications; J44.9 Chronic obstructive pulmonary disease, unspecified; I48.91 Unspecified atrial fibrillation; Z79.01 Long term (current) use of anticoagulants; K44.9 Diaphragmatic hernia without obstruction or gangrene
CPT/HCPCS: 36415; 36569; 43239; 70450; 71045; 71250; 74470; 78278; 80053; 80061; 80202; 81001; 82140; 82270; 82310; 82550; 82553; 82607; 82728; 82746; 82947; 82948; 83036; 83540; 83605; 83735; 84100; 84443; 84466; 84484; 85014; 85018; 85025; 85045; 85610; 85651; 85730; 86140; 86850; 86900; 86920; 87040; 87635; 88305; 88312; 93005; 93306; 93925; 94660; 96361; 96372; 97139; 99251; 99284; A9512; J0360; J0610; J0692; J1630; J1756; J2001; J2060; J2353; J2354; J2405; J3370; J3480; J7030; J7042; J7050; J7060; P9016

== ENCOUNTER 2020-09-30 17:01 | Emergency (ER) | payer SELFPAY ==
[~2020-09-30] VITALS: Ht 167.6 cm; Wt 69.4 kg
[~2020-09-30 17:01] MED LIST: ACETAMINOPHEN500 MG PO; ASCORBIC ACID500 MG PO; CARAFATE1 GM PO; Calcium Carbonate PO; FERROUS SULFAT325 MG PO; LIPITOR20 MG PO; LISINOPRIL10 MG PO; LOPRESSOR25 MG PO; MAG-OXIDE400 MG PO; MORINGA PO; Multivitamins/Minerals PO; OCUVITE TABLET1 EAC1 PO; PANTOPRAZOLE SO40 MG PO; PENTOXIFYLLINE400 MG PO; ZESTRIL20 MG PO; Zinc Sulfate PO; [UNRECOGNIZED DRUG - OTHER] PO
[2020-09-30] MEDS ORDERED: PIPERACILLIN/TAZO 4.5 GM 100 ML IV ONE (18:15)
[2020-09-30 18:18] LABS: BASOPHILS # (AUTO) 0.1 (0.0-0.1); BASOPHILS % 0.5 % (0.0-1.0); EOSINOPHILS # (AUTO) 0.1 (0.0-0.4); EOSINOPHILS % 0.8 % (0.0-6.0); HEMATOCRIT 31.9 % (38.2-49.6); HEMOGLOBIN 10.3 g/dL (14.0-18.0); LYMPHOCYTES # (AUTO) 2.3 (1.0-3.2); LYMPHOCYTES % 16.8 % (18.0-39.1); MEAN CORPUSCULAR HEMOGLOBIN 27.4 pg (28-32); MEAN CORPUSCULAR HGB CONC 32.3 g/dL (31-35); MEAN CORPUSCULAR VOLUME 84.8 fL (81-99); MONOCYTES % 7.1 % (4.4-11.3); NEUTROPHILS % 74.4 % (38.7-80.0); PLATELET COUNT 455 x10e3/uL (140-360); RED BLOOD COUNT 3.76 x10e6/uL (4.3-5.7); RED CELL DISTRIBUTION WIDTH 12.9 % (11.7-14.4)
[2020-09-30 18:30] LABS: ALANINE AMINOTRANSFERASE 21 IU/L (0-55); ALBUMIN/GLOBULIN RATIO 0.9 (0.8-2.0); ALKALINE PHOSPHATASE 103 IU/L (40-150); ANION GAP 13.9 mmol/L (8-16); BLOOD UREA NITROGEN 24 mg/dL (7-26); BUN/CREATININE RATIO 25 (6-25); CALCIUM 10.1 mg/dL (8.4-10.2); CARBON DIOXIDE 29 mmol/L (22-29); CHLORIDE 96 mmol/L (98-107); CREATININE, SERUM 0.96 mg/dL (0.72-1.25); EST GLOMERULAR FILTRATION RATE > 60 ML/MIN (60-); GLUCOSE 107 mg/dL (74-118); POTASSIUM 4.9 mmol/L (3.5-5.1); SODIUM 134 mmol/L (136-145)
[2020-09-30] MEDS ORDERED: SODIUM CHLORIDE 0.9% 1000ML 1,000 ML IV SCH (19:15)
[2020-09-30] MEDS ORDERED: VANCOMYCIN 500MG/NS 0.9% 100ML 100 ML IV SCH (19:30)
== END 2020-09-30 22:49 | disposition other institution (70) ==
LOC: ER 18:16
DX: E11.621 Type 2 diabetes mellitus with foot ulcer (principal); L08.89 Other specified local infections of the skin and subcutaneous tissue; I10 Essential (primary) hypertension; E78.5 Hyperlipidemia, unspecified
CPT/HCPCS: 36415; 73630; 80053; 83605; 85025; 87040; 87071; 87186; 87205; 99284; J2543; J3370; J7030

== ENCOUNTER 2024-10-16 01:34 | Inpatient (IN) | payer MEDICARE, OTHER ==
[~2024-10-16] VITALS: Ht 167.6 cm; Wt 69.4 kg
[2024-10-16] VITALS (10 sets, daily range): BP systolic 134–161; BP diastolic 59–70; PULSE 77–90; RESP 16–18; TEMP 97.8–98.6; O2SAT 94–98
[2024-10-16 02:01] LABS: BASOPHILS % 0.2 % (0.0-1.0); HEMATOCRIT 25.9 % (38.2-49.6); HEMOGLOBIN 8.2 g/dL (14.0-18.0); LYMPHOCYTES # (AUTO) 0.5 (1.0-3.2); LYMPHOCYTES % 2.9 % (18.0-39.1); MEAN CORPUSCULAR HEMOGLOBIN 27.2 pg (28-32); MEAN CORPUSCULAR HGB CONC 31.7 g/dL (31-35); MONOCYTES # (AUTO) 1.3 (0.2-0.8); MONOCYTES % 7.7 % (4.4-11.3); NEUTROPHILS # (AUTO) 14.6 (2.1-6.9); NEUTROPHILS % 88.4 % (38.7-80.0); PLATELET COUNT 331 x10e3/uL (140-360); RED BLOOD COUNT 3.01 x10e6/uL (4.3-5.7); RED CELL DISTRIBUTION WIDTH 13.9 % (11.7-14.4); WHITE BLOOD COUNT 16.48 x10e3/uL (4.8-10.8)
[2024-10-16] MEDS: ONDANSETRON HCL INJ 2MG/ML 2ML 2 MG/ML VIAL IV STA (02:04)
[2024-10-16] MEDS: ACETAMINOPHEN 1000 MG/100 ML IV STA (02:04)
[2024-10-16] MEDS: SODIUM CHLORIDE 0.9% 1000ML 1,000 ML IV ONE ×2 (02:05)
[2024-10-16 02:18] LABS: ALBUMIN 2.9 g/dL (3.5-5.0); ALBUMIN/GLOBULIN RATIO 0.8 (0.8-2.0); ANION GAP 16.1 mmol/L (8-16); BILIRUBIN,TOTAL 0.6 mg/dL (0.2-1.2); CALCIUM 9.1 mg/dL (8.4-10.2); CREATININE, SERUM 1.64 mg/dL (0.72-1.25); POTASSIUM 4.1 mmol/L (3.5-5.1); TOTAL PROTEIN 6.7 g/dL (6.5-8.1)
[2024-10-16 02:37] LABS: CORONAVIRUS COVID-19 AG NEGATIVE (NEGATIVE); INFLUENZA A AG NEGATIVE (NEGATIVE); INFLUENZA B AG NEGATIVE (NEGATIVE)
[2024-10-16 02:42] LABS: BILIRUBIN,URINE NEGATIVE (NEGATIVE); CLARITY,URINE SL CLOUDY (CLEAR); COLOR,URINE YELLOW (YELLOW); GLUCOSE, URINE NEGATIVE (NEGATIVE); KETONES,URINE TRACE (NEGATIVE); LEUKOCYTE ESTERASE ,URINE SMALL (NEGATIVE); NITRITE,URINE NEGATIVE (NEGATIVE); PH,URINE 5.5 (5 - 7); PROTEIN,URINE DIPSTICK 2+ (NEGATIVE); URINE UROBILINOGEN 0.2 mg/dL (0.2 - 1)
[2024-10-16 03:07] LABS: BACTERIA,URINE MANY /HPF; EPITHELIAL CELLS,URINE FEW /LPF; WBC,URINE (MAN) >50 /HPF (0-5)
[2024-10-16] MEDS ORDERED: DEXTROSE 50% SYRINGE 50 ML IV PRN (03:30)
[2024-10-16] MEDS ORDERED: SODIUM CHLORIDE FLUSH 10 ML SYR INJ PRN (03:30)
[2024-10-16] MEDS ORDERED: CARVEDILOL25 MG PO (04:48)
[2024-10-16] MEDS ORDERED: CHLORTHALIDONE50 MG PO (04:48)
[2024-10-16] MEDS ORDERED: METFORMIN HCL1000 MG PO (04:48)
[2024-10-16] MEDS ORDERED: GABAPENTIN300 MG PO (04:48)
[2024-10-16] MEDS ORDERED: LISINOPRIL40 MG PO (04:48)
[2024-10-16] MEDS ORDERED: FLOMAX0.4 MG PO (04:48)
[2024-10-16] MEDS ORDERED: DOXAZOSIN MESYLA2 MG PO (04:48)
[2024-10-16] MEDS ORDERED: ONDANSETRON HCL INJ 2MG/ML 2ML 2 MG/ML VIAL IV PRN (05:41)
[2024-10-16] MEDS: INSULIN REGULAR, HUMAN 100 UNIT/1 ML SQ SCH (07:30)
[2024-10-16] MEDS: ASCORBIC ACID 500 MG TAB PO SCH (09:29)
[2024-10-16] MEDS: METOPROLOL TARTRATE 25 MG TAB PO SCH (09:30)
[2024-10-16 10:14] LABS: TROPONIN I 0.081 ng/mL (0-0.300)
[2024-10-16] MEDS: PENTOXIFYLLINE 400 MG TAB CR PO SCH (11:53)
[2024-10-16] MEDS: TAMSULOSIN HCL 0.4 MG CAP PO SCH (16:14)
[2024-10-16] MEDS: PANTOPRAZOLE SOD 40 MG TABEC PO SCH (16:14)
[2024-10-16] MEDS: DOXAZOSIN MESYLATE 2 MG TAB PO SCH (21:30)
[2024-10-16] MEDS: ATORVASTATIN 40 MG TAB PO SCH (21:30)
[2024-10-17] VITALS (9 sets, daily range): BP systolic 135–146; BP diastolic 51–102; PULSE 77–90; RESP 18–20; TEMP 97.1–100.3; O2SAT 98–100
[2024-10-17 05:51] LABS: BASOPHILS % 0.1 % (0.0-1.0); HEMATOCRIT 25.3 % (38.2-49.6); LYMPHOCYTES # (AUTO) 0.4 (1.0-3.2); LYMPHOCYTES % 2.8 % (18.0-39.1); MEAN CORPUSCULAR HEMOGLOBIN 27.2 pg (28-32); MEAN CORPUSCULAR HGB CONC 31.6 g/dL (31-35); MEAN CORPUSCULAR VOLUME 86.1 fL (81-99); MONOCYTES % 6.7 % (4.4-11.3); NEUTROPHILS # (AUTO) 13.9 (2.1-6.9); NEUTROPHILS % 89.9 % (38.7-80.0); PLATELET COUNT 336 x10e3/uL (140-360); RED BLOOD COUNT 2.94 x10e6/uL (4.3-5.7); RED CELL DISTRIBUTION WIDTH 14.3 % (11.7-14.4); WHITE BLOOD COUNT 15.47 x10e3/uL (4.8-10.8)
[2024-10-17 06:06] LABS: MAGNESIUM 1.8 MG/DL (1.3-2.1)
[2024-10-17 06:08] LABS: ALBUMIN 2.4 g/dL (3.5-5.0); ALBUMIN/GLOBULIN RATIO 0.6 (0.8-2.0); ANION GAP 15.4 mmol/L (8-16); BILIRUBIN,TOTAL 0.5 mg/dL (0.2-1.2); CALCIUM 8.6 mg/dL (8.4-10.2); CREATININE, SERUM 1.41 mg/dL (0.72-1.25); POTASSIUM 3.4 mmol/L (3.5-5.1); TOTAL PROTEIN 6.2 g/dL (6.5-8.1)
[2024-10-17 06:28] LABS: THYROID STIMULATING HORMONE 0.464 uIU/mL (0.350-4.940)
[2024-10-17] MEDS: ACETAMINOPHEN 325 MG TAB PO PRN (20:54)
[2024-10-18] VITALS (8 sets, daily range): BP systolic 131–166; BP diastolic 52–69; PULSE 65–84; RESP 18–20; TEMP 97.5–99.5; O2SAT 98–100
[2024-10-18 08:44] LABS: TROPONIN I 0.033 ng/mL (0-0.300)
[2024-10-18] MEDS ORDERED: SODIUM CHLORIDE 0.9% 100 ML ONE (08:54)
[2024-10-18] MEDS: MEROPENEM 1 GM in SODIUM CHLORIDE 0.9% 100 ML IV SCH (08:58)
[2024-10-18] MEDS: IRON SUCROSE 100 MG in SODIUM CHLORIDE 0.9% 100 ML IV SCH (10:33)
[2024-10-18] MEDS: LORATADINE 10 MG TAB PO SCH (10:33)
[2024-10-19] VITALS (9 sets, daily range): BP systolic 124–170; BP diastolic 58–85; PULSE 65–79; RESP 18–19; TEMP 98–100; O2SAT 99–100
[2024-10-19 05:58] LABS: BASOPHILS % 0.2 % (0.0-1.0); EOSINOPHILS % 0.3 % (0.0-6.0); HEMATOCRIT 22.1 % (38.2-49.6); HEMOGLOBIN 7.4 g/dL (14.0-18.0); LYMPHOCYTES # (AUTO) 0.9 (1.0-3.2); LYMPHOCYTES % 9.4 % (18.0-39.1); MEAN CORPUSCULAR HGB CONC 33.5 g/dL (31-35); MEAN CORPUSCULAR VOLUME 80.7 fL (81-99); MONOCYTES % 9.8 % (4.4-11.3); NEUTROPHILS # (AUTO) 7.7 (2.1-6.9); NEUTROPHILS % 79.2 % (38.7-80.0); PLATELET COUNT 368 x10e3/uL (140-360); RED BLOOD COUNT 2.74 x10e6/uL (4.3-5.7); RED CELL DISTRIBUTION WIDTH 14.5 % (11.7-14.4)
[2024-10-19 06:25] LABS: ANION GAP 13.3 mmol/L (8-16); CALCIUM 8.3 mg/dL (8.4-10.2); CREATININE, SERUM 1.26 mg/dL (0.72-1.25); POTASSIUM 3.3 mmol/L (3.5-5.1)
[2024-10-19] MEDS: MEROPENEM 1 GM in SODIUM CHLORIDE 0.9% 100 ML IV SCH ×2 (12:13→17:00)
[2024-10-20] VITALS (7 sets, daily range): BP systolic 116–175; BP diastolic 44–74; PULSE 72–81; RESP 18; TEMP 98.2–98.9; O2SAT 98–100
[2024-10-20] MEDS: HYDRALAZINE HCL 20 MG/ML VIAL IV PRN (04:51)
[2024-10-21] VITALS (9 sets, daily range): BP systolic 137–170; BP diastolic 54–70; PULSE 71–94; RESP 16–18; TEMP 97.9–99.3; O2SAT 97–100
[2024-10-21 15:22] LABS: BASOPHILS # (AUTO) 0.1 (0.0-0.1); BASOPHILS % 0.7 % (0.0-1.0); EOSINOPHILS # (AUTO) 0.3 (0.0-0.4); EOSINOPHILS % 3.3 % (0.0-6.0); HEMATOCRIT 24.7 % (38.2-49.6); HEMOGLOBIN 7.6 g/dL (14.0-18.0); LYMPHOCYTES # (AUTO) 1.3 (1.0-3.2); MEAN CORPUSCULAR HEMOGLOBIN 26.8 pg (28-32); MEAN CORPUSCULAR HGB CONC 30.8 g/dL (31-35); MONOCYTES # (AUTO) 1.3 (0.2-0.8); MONOCYTES % 14.1 % (4.4-11.3); NEUTROPHILS # (AUTO) 6.1 (2.1-6.9); NEUTROPHILS % 66.4 % (38.7-80.0); PLATELET COUNT 482 x10e3/uL (140-360); RED BLOOD COUNT 2.84 x10e6/uL (4.3-5.7); RED CELL DISTRIBUTION WIDTH 14.7 % (11.7-14.4); WHITE BLOOD COUNT 9.15 x10e3/uL (4.8-10.8)
[2024-10-21 15:49] LABS: ANION GAP 13.4 mmol/L (8-16); CALCIUM 8.7 mg/dL (8.4-10.2); CREATININE, SERUM 1.3 mg/dL (0.72-1.25); POTASSIUM 4.4 mmol/L (3.5-5.1)
[2024-10-22 03:37] VITALS: BP 182/71; PULSE 79; RESP 18; TEMP 99.8; O2SAT 100
[2024-10-22 05:51] LABS: BASOPHILS # (AUTO) 0.1 (0.0-0.1); BASOPHILS % 0.6 % (0.0-1.0); EOSINOPHILS # (AUTO) 0.3 (0.0-0.4); EOSINOPHILS % 2.9 % (0.0-6.0); HEMATOCRIT 24.5 % (38.2-49.6); HEMOGLOBIN 7.5 g/dL (14.0-18.0); LYMPHOCYTES # (AUTO) 1.7 (1.0-3.2); LYMPHOCYTES % 18.8 % (18.0-39.1); MEAN CORPUSCULAR HEMOGLOBIN 26.8 pg (28-32); MEAN CORPUSCULAR HGB CONC 30.6 g/dL (31-35); MEAN CORPUSCULAR VOLUME 87.5 fL (81-99); MONOCYTES # (AUTO) 1.2 (0.2-0.8); MONOCYTES % 12.9 % (4.4-11.3); NEUTROPHILS # (AUTO) 5.8 (2.1-6.9); NEUTROPHILS % 62.3 % (38.7-80.0); PLATELET COUNT 409 x10e3/uL (140-360); RED CELL DISTRIBUTION WIDTH 14.8 % (11.7-14.4); WHITE BLOOD COUNT 9.28 x10e3/uL (4.8-10.8)
[2024-10-22 06:13] LABS: ANION GAP 13.8 mmol/L (8-16); CALCIUM 8.6 mg/dL (8.4-10.2); CREATININE, SERUM 1.08 mg/dL (0.72-1.25); POTASSIUM 3.8 mmol/L (3.5-5.1)
[2024-10-22 07:59] VITALS: BP 141/60; PULSE 100; RESP 18; TEMP 98.2; O2SAT 100
[2024-10-22 17:10] VITALS: BP 188/69; PULSE 79; RESP 19; TEMP 98.3; O2SAT 99
[2024-10-22 19:34] VITALS: BP 133/56; PULSE 74; RESP 18; TEMP 98.8; O2SAT 100
[2024-10-22 20:00] VITALS: BP 133/56; PULSE 74; RESP 18; TEMP 98.8; O2SAT 100
[2024-10-22 23:22] VITALS: BP 168/81; PULSE 75; RESP 18; TEMP 98.4; O2SAT 100
[2024-10-23 03:22] LABS: FOLATE 16.8 ng/mL (7.0-15.4)
[2024-10-23 03:29] VITALS: BP 174/72; PULSE 79; RESP 18; TEMP 98.2; O2SAT 100
[2024-10-23 08:00] VITALS: BP 174/72; PULSE 79; RESP 18; TEMP 98.2; O2SAT 100
[2024-10-23] MEDS: NIFEDIPINE CR 30 MG TAB PO SCH (10:19)
[2024-10-23] MEDS: IRON SUCROSE 100 MG in SODIUM CHLORIDE 0.9% 100 ML IV SCH (10:20)
[2024-10-23] MEDS: NIFEDIPINE CR 30 MG TAB PO ONE (10:22)
[2024-10-23 11:57] VITALS: BP 173/62; PULSE 80; RESP 18; TEMP 98.2; O2SAT 100
[2024-10-23 16:00] VITALS: BP 136/56; PULSE 77; RESP 20; TEMP 98.5; O2SAT 98
[2024-10-23 20:00] VITALS: BP 113/57; PULSE 70; RESP 18; TEMP 98.2; O2SAT 99
[2024-10-23] MEDS ORDERED: HYDROCODONE/APAP 5MG-325MG TAB PO PRN (20:00)
[2024-10-23] MEDS ORDERED: SUMATRIPTAN SUCCINATE 6 MG/0.5 ML VIAL SC PRN (20:00)
[2024-10-24] VITALS: BP 139/56; PULSE 75; RESP 18; TEMP 97.5; O2SAT 100
[2024-10-24 04:00] VITALS: BP 155/69; PULSE 75; RESP 18; TEMP 98; O2SAT 100
[2024-10-24 06:48] LABS: BASOPHILS # (AUTO) 0.1 (0.0-0.1); BASOPHILS % 0.7 % (0.0-1.0); EOSINOPHILS # (AUTO) 0.3 (0.0-0.4); EOSINOPHILS % 3.2 % (0.0-6.0); HEMATOCRIT 23.9 % (38.2-49.6); HEMOGLOBIN 7.8 g/dL (14.0-18.0); LYMPHOCYTES # (AUTO) 1.9 (1.0-3.2); LYMPHOCYTES % 21.1 % (18.0-39.1); MEAN CORPUSCULAR HEMOGLOBIN 27.3 pg (28-32); MEAN CORPUSCULAR HGB CONC 32.6 g/dL (31-35); MEAN CORPUSCULAR VOLUME 83.6 fL (81-99); MONOCYTES # (AUTO) 0.8 (0.2-0.8); MONOCYTES % 9.6 % (4.4-11.3); NEUTROPHILS # (AUTO) 5.4 (2.1-6.9); NEUTROPHILS % 61.4 % (38.7-80.0); PLATELET COUNT 545 x10e3/uL (140-360); RED BLOOD COUNT 2.86 x10e6/uL (4.3-5.7); WHITE BLOOD COUNT 8.75 x10e3/uL (4.8-10.8)
[2024-10-24 07:17] LABS: ALBUMIN 2.7 g/dL (3.5-5.0); ALBUMIN/GLOBULIN RATIO 0.7 (0.8-2.0); ANION GAP 15.1 mmol/L (8-16); BILIRUBIN,TOTAL 0.2 mg/dL (0.2-1.2); CALCIUM 9.2 mg/dL (8.4-10.2); CREATININE, SERUM 1.04 mg/dL (0.72-1.25); POTASSIUM 4.1 mmol/L (3.5-5.1); TOTAL PROTEIN 6.8 g/dL (6.5-8.1)
[2024-10-24 08:29] VITALS: BP 166/75; PULSE 82; RESP 19; TEMP 98.4; O2SAT 100
[2024-10-24 12:07] VITALS: BP 159/63; PULSE 64; RESP 18; TEMP 98.5; O2SAT 100
[2024-10-24 16:27] VITALS: BP 157/70; PULSE 76
== END 2024-10-24 17:59 | disposition home or self-care (01) | DRG 871 ==
LOC: ER 01:40 → ERHOLD 03:23 → MED/SURG2 05:38
PROVIDERS: ADMIT Internal Medicine; ATTEND Internal Medicine
DX: A41.51 Sepsis due to Escherichia coli [E. coli] (principal); G92.8 Other toxic encephalopathy; Z16.12 Extended spectrum beta lactamase (ESBL) resistance; N39.0 Urinary tract infection, site not specified; E87.1 Hypo-osmolality and hyponatremia; Z16.24 Resistance to multiple antibiotics; N17.9 Acute kidney failure, unspecified; T80.818A Extravasation of other vesicant agent, initial encounter; I82.611 Acute embolism and thrombosis of superficial veins of right upper extremity; T80.1XXA Vascular complications following infusion, transfusion and therapeutic injection, initial encounter; I80.8 Phlebitis and thrombophlebitis of other sites; Y92.230 Patient room in hospital as the place of occurrence of the external cause; R65.20 Severe sepsis without septic shock; R31.29 Other microscopic hematuria; E11.65 Type 2 diabetes mellitus with hyperglycemia; I12.9 Hypertensive chronic kidney disease with stage 1 through stage 4 chronic kidney disease, or unspecified chronic kidney disease; N18.9 Chronic kidney disease, unspecified; E78.5 Hyperlipidemia, unspecified; R00.0 Tachycardia, unspecified; E11.22 Type 2 diabetes mellitus with diabetic chronic kidney disease; N40.0 Benign prostatic hyperplasia without lower urinary tract symptoms; D50.9 Iron deficiency anemia, unspecified; R29.6 Repeated falls; R80.9 Proteinuria, unspecified; Z11.52 Encounter for screening for COVID-19; Z79.899 Other long term (current) drug therapy
CPT/HCPCS: 36415; 70450; 71045; 71250; 74176; 80048; 80053; 81001; 82550; 82607; 82746; 82948; 83036; 83540; 83605; 83735; 84100; 84443; 84466; 84484; 85025; 87040; 87071; 87086; 87186; 87205; 93005; 93971; 94799; 99284; J0360; J0692; J0696; J1756; J2185; J2405; J3030; J7030; J7050